=== PATIENT | male | born 1945 | race Caucasian/White ===

== ENCOUNTER 2016-08-15 17:59 | Inpatient (IN) | payer OTHER, MEDICARE ==
[~2016-08-15] VITALS: Ht 180.3 cm; Wt 98.5 kg
--- NOTE | ~2016-08-15 | PR ---
[place], [place] PROGRESS NOTE NAME: BETH DOBBINS [facility] #: [id number] UNIT #: [id number] ROOM: 409 DOCTOR: GERONIMO SMITH MD BIRTHDATE: [birth year] DOS: CARDIOLOGY PROGRESS NOTE SUBJECTIVE: The patient was seen at his bedside today for followup of his paroxysmal atrial fibrillation on 08/19/2016. He is a 70-year-old man who has been fairly inactive at home because of severe degenerative joint disease and pain in his right hip. He presented to the hospital on this occasion with urinary sepsis. Sputum grew out methicillin sensitive Staphylococcus aureus and urine grew out Staphylococcus schleiferi. Blood cultures grew out gram-positive cocci in pairs and clusters. Final identification is not yet available. He is being treated with IV antibiotics including vancomycin and piperacillin. He was very confused and lethargic on admission. This is improving, but he remains somewhat confused. Early on, he did have atrial fibrillation with rapid ventricular response, but this converted spontaneously to sinus rhythm and echocardiogram on 08/16/2016 showed normal left ventricular size with mild concentric left ventricular hypertrophy, global hypokinesis of the left ventricle with ejection fraction 40-45%, moderate right ventricular dilation, moderate left atrial dilation, and thickening of the pericardium, but no significant pericardial effusion. LABORATORY DATA: Laboratory studies today show white count of 22,000, hemoglobin is 8.7, platelet count 252,000. Sodium 139, potassium 4.0, BUN 37, creatinine 1.22. Monitor continues to show sinus rhythm. PHYSICAL EXAMINATION: VITAL SIGNS: His pulse is 73 and regular, blood pressure is 148/74. He is afebrile. He weighs 98.5 kilograms. NECK: Supple. He has no jugular distention. Carotids are full. LUNGS: Respirations are unlabored. CHEST: Clear with decreased breath sounds at the bases. HEART: Has a regular rhythm with an S4 gallop. ABDOMEN: Soft. EXTREMITIES: Showed trace edema bilaterally. He does seem to be stable from a cardiac standpoint. IMPRESSION: 1. Urinary tract infection with sepsis and possible pyelonephritis. 2. Possible left lower lobe pneumonia. 3. Paroxysmal atrial fibrillation with rapid ventricular response in the setting of an acute illness. 4. Decreased left ventricular systolic function. 5. Chronic obstructive pulmonary disease. 6. Severe degenerative joint disease of the hip with intractable pain. PLAN: We will continue supportive care and he will be treated for his infections. Once he has recovered, we will proceed with a pharmacologic stress [place], [place] PROGRESS NOTE NAME: BTEH DOBBINS [facility] #: [id number] UNIT #: [id number] ROOM: 409 DOCTOR: GERONIMO SMITH MD BIRTHDATE: [birth year] test as part of his preoperative assessment prior to hip replacement. We will continue to follow him with his other physicians. We thank the hospitalist physicians for asking our advice regarding his care. GERONIMO SMITH MD CM:PNTRANS [phone] GERONIMO SMITH MD 08/19/169 interface
--- NOTE | ~2016-08-15 | PR ---
[place], [place] PROGRESS NOTE NAME: BETH DOBBINS UNIT #: [id number] ROOM: 409 DOCTOR: BRISA COLLADO MD BIRTHDATE: [birth year] DOS: 08/22/2016 SUBJECTIVE: He has been noted quite comfortable at this time, resting on his bed. Denies symptoms of chest pain. There was no coughing or acute shortness of breath described. Denies any abdominal pain. OBJECTIVE: VITAL SIGNS: Shows normal temperature, respirations 18, heart rate 79, blood pressure 152/70-120/83. Pulse oxygen saturation of the patient on room air was 96% saturation. HEENT: Shows no acute change. NECK: Supple. CARDIOVASCULAR SYSTEM: S1, S2 audible. LUNGS: Clear. ABDOMEN: Soft, nontender. EXTREMITIES: Shows improvement in edema of the lower extremities. LABORATORY DATA: Vancomycin trough level yesterday was noted as 12.7, which is in the normal range. The blood culture from the of this month done in the Emergency Room 7 days ago was described as Staphylococcus capitis isolation. No other labs were done today. IMPRESSION: 1. The patient who has been currently noted with improvement in the respiratory symptoms. in general with resolving acute urinary tract infection and acute pyelonephritis. 2. Isolation Staphylococcus capitis, the patient significance was unknown, possibly contamination or acute infection, not very clear. 3. Resolving acute hypoxic respiratory failure as well. PLAN OF TREATMENT: No changes in plan of management. Continue the patient on current therapy, plan of management, other plan of care. Usual treatment. The patient was planned for possibility of insertion of the PICC line and then transferred to the [facility] facility. In the meantime, other previous treatment to be continued. Usual care. Supportive therapy, plan of management as well. [place], [place] PROGRESS NOTE NAME: BETH DOBBINS UNIT #: [id number] ROOM: 409 DOCTOR: BRISA COLLADO MD BIRTHDATE: [birth year] BRISA SERNA MD CM:PNTRANS 1124 BRISA MCMAHON MD 08/22/16 1124 interface
--- NOTE | ~2016-08-15 | PR ---
[place], [place] PROGRESS NOTE NAME: BETH DOBBINS UNIT #: [id number] ROOM: 405 DOCTOR: BRISA COLLADO MD BIRTHDATE: [birth year] DOS: 08/19/2016 SUBJECTIVE: He has been noted resolution of abdominal pain for this patient. At this time, the coughing has been decreasing. There are no symptoms of chest pain or any abdominal pain. OBJECTIVE: VITAL SIGNS: For the patient, which has been recorded showed the temperature of the patient noted as normal. The respiratory rate 16, heart rate 73, blood pressure 140/84. The pulse oxygen saturation on 2 liters cannula 97% saturation. HEENT: Examination shows no acute change. NECK: Supple. CARDIOVASCULAR: S1, S2 is audible. LUNGS: The patient was noted without any wheezing or crackles. Breaths are noted mild to moderately decreased bilaterally. ABDOMEN: Soft, obese, nontender. EXTREMITIES: Show no edema. LABORATORY DATA: The cultures of the sputum of the patient noted light growth of Staph aureus for this patient. Vancomycin trough level noted as 17. CBC today: WBC count was still noted elevated WBC count 22, hemoglobin 8.7, hematocrit 27.6, platelet count was normal. Blood cultures remain no bacterial growth. Chest x-ray of the patient that were done yesterday for the patient noted without any acute pulmonary infiltration. IMPRESSION: 1. Resolving acute hypoxic respiratory failure. 2. Acute bronchitis. 3. Acute pyelonephritis. 4. Elevation of the WBC count was still noted for this patient with gradual reduction. WBC count decreased from 24,000 yesterday to 22,000 today. PLAN OF TREATMENT: Treatments of Staph aureus for the patient with antibiotics would be continued. The patient is getting intravenous vancomycin, which has also treating the urinary tract infection as well, which has isolated to be staph species ____ Staph aureus. Other previous treatment plan and management to be continued. Monitoring the trough level. Vancomycin adjustment of the doses has been done by the pharmacy staff. The yesterday level noted therapeutic as random level of Vancomycin noted 17. [place], [place] PROGRESS NOTE NAME: BETH DOBBINS UNIT #: [id number] ROOM: 405 DOCTOR: BRISA COLLADO MD BIRTHDATE: [birth year] BRISA SERNA MD CM:PNTRANS [id number] BRISA MCMAHON MD 08/19/16 1427 interface
--- NOTE | ~2016-08-15 | PR ---
[place], [place] PROGRESS NOTE NAME: BETH DOBBINS [facility] #: [id number] UNIT #: [id number] ROOM: 409 DOCTOR: ADITI MAK,SEPTEMBER BIRTHDATE: [birth year] DOS: SUBJECTIVE: The patient is a 70-year-old male who is being followed for sepsis. He had positive blood cultures from his admission on 08/15/2016 with one pair gram-positive cocci in pairs and clusters and gram-negative bacilli. The other set also has gram-positive cocci in pairs and clusters. His urine culture had greater than 100,000 colonies of Staph schleiferi. His MRSA screen was negative. He has MSSA in his sputum. Repeat blood cultures were obtained yesterday and are pending. He has had a CT that demonstrated bilateral chronic versus acute pyelonephritis as well as severe degenerative changes of the right hip with complete loss of joint space. He has significant right leg pain and was actually set up for a total hip replacement on 09/01/2016 that is currently being delayed until his infections are treated. He had a modified barium swallow on 08/18/2016 that was negative. Chest x-ray on 08/18/2016 which showed no active disease. One low-grade temperature overnight at 100.3. REVIEW OF SYSTEMS: No nausea, vomiting or diarrhea. No shortness of breath. Has significant systemic edema, continues with right hip pain. No rashes. Currently has a Morris catheter in place. Denied any urinary symptoms at the time of admission. CURRENT MEDICATIONS: Include vancomycin, Xarelto, Flexeril, Coreg, Protonix, Zocor, Humalog, Percocet, DuoNeb, Neurontin, Restoril and Zofran. LABORATORY DATA: Cultures as reviewed above. WBC is 20.2, platelets 264. BUN 23 and creatinine 0.98. AST 45 and ALT 25. Albumin 1.3. RADIOLOGY: He also had a 2D echocardiogram, which did not demonstrate any valvular vegetation. PHYSICAL EXAMINATION: VITAL SIGNS: Temperature 98.0, pulse 78, respirations 20, BP 173/61. GENERAL: A 70-year-old male, alert and oriented, in no acute distress, but he is a poor historian. HEAD, EYES, EARS, NOSE AND THROAT: Normocephalic. Mucous membranes pink and moist. No thrush. NECK: No cervical lymphadenopathy. LUNGS: Diminished bases, respirations even and unlabored. HEART: Regular rhythm. No murmur appreciated. ABDOMEN: Soft, positive bowel sounds, nontender. EXTREMITIES: +2 edema bilateral upper extremities and bilateral lower extremities. SKIN: Warm, dry, free of rashes. ASSESSMENT: Bacteremia with gram-negative rods and gram-positive cocci with Staphylococcus schleiferi, bacteriuria and pyelonephritis per CT of the abdomen and pelvis, significant leukocytosis. PLAN: At this point, we will continue the IV vancomycin, follow up on cultures. Repeat blood cultures from 08/19/2016 were negative thus far and also given the [place], [place] PROGRESS NOTE NAME: BETH DOBBINS [facility] UNIT #: [id number] ROOM: 409 DOCTOR: ADITI MAK BIRTHDATE: [birth year] gram-negative bacilli that are on the admitting blood cultures, add cefepime. Case discussed with Dr. Anai Figueroa. ANDREW OBDULIO P[place] ANAI FIGUEROA MD CM:MAYANK 08 12 ADITI MAK 08/21/16 7271 interface
--- NOTE | ~2016-08-15 | PR ---
[place], [place] PROGRESS NOTE NAME: BETH DOBBINS UNIT #: [id number] ROOM: 409 DOCTOR: HENRY BARRAGAN,ANAI Robins BIRTHDATE: [birth year] DOS: 08/20/2016 ADDENDUM I agree with above plans as outlined. We will follow the patient up clinically and adjust accordingly. ANAI FIGUEROA MD CM:PNTRANS [id number] ANAI FIGUEROA MD 08/22/16 1049 interface
--- NOTE | ~2016-08-15 | PR ---
[place], [place] PROGRESS NOTE NAME: BETH DOBBINS [facility] #: [id number] UNIT #: [id number] ROOM: 409 DOCTOR: BRISA COLLADO MD BIRTHDATE: [birth year] DOS: 08/21/2016 PULMONARY FOLLOWUP NOTE SUBJECTIVE: The patient was noted with insomnia last night and noted sleeping this morning, he was still noted with generalized weakness and fatigue. The patient has been noted with chronic severe arthritis of the hip for this patient and was noted decreased mobility. Respiratory symptoms of the patient has been improving. There were no symptoms of chest pain, no cough described. OBJECTIVE: VITAL SIGNS: Shows normal temperature, respiratory rate 22, heart rate 81, blood pressure 153/73. Pulse oxygen saturation noted as 93% on nasal cannula. HEENT: Showed no new change. NECK: Supple. CARDIOVASCULAR SYSTEM: S1, S2 audible. LUNGS: The patient was noted without any wheezing or crackles at the present time. ABDOMEN: Soft. EXTREMITIES: Shows mild edema of the lower extremities. LABORATORY DATA: CMP of the patient this morning, glucose 141, BUN and creatinine normal, albumin 1.3. CBC: WBC count 18.5, hemoglobin 8.4, hematocrit 27.0, platelet count was normal. Stool for C. diff toxin was noted as negative. IMPRESSION: The patient who has been currently noted stable from the respiratory standpoint for this patient showing gradual improvement in the acute hypoxic respiratory failure, mild peripheral edema. Acute pyelonephritis. The patient with urinary tract infection. Leukocytosis secondary to acute infection for this patient, urinary tract infection with gradual resolution. PLAN OF TREATMENT: No changes in the plan of management from pulmonary standpoint. Continue the oxygen supplementation, bronchodilators, antibiotics. The patient was planned for PICC line insertion per and then transfer to half-way facility. In the meantime, continue other therapy, plan of management, usual care. Supportive care. [place], [place] PROGRESS NOTE NAME: BETH DOBBINS [facility] #: [id number] UNIT #: [id number] ROOM: 409 DOCTOR: BRISA COLLADO MD BIRTHDATE: [birth year] BRISA SERNA MD CM:PNTRANS 1253 [id number] BRISA MCMAHON MD 08/22/16 0233 interface
--- NOTE | ~2016-08-15 | PR ---
[place], [place] PROGRESS NOTE [id number]IT #: [id number] ROOM: 409 DOCTOR: DAPHNE MCMAOHN MD,BRISA BIRTHDATE: [birth year] DOS: 08/20/2016 PULMONARY PROGRESS NOTE SUBJECTIVE: The patient was seen and examined on 08/20/2016. He has not noticed any acute new respiratory complaints at the present time. The patient has been comfortably resting, getting oxygen supplementation on nasal cannula, the abdominal pain has been resolving. There was no sputum expectoration. OBJECTIVE: VITAL SIGNS: Temperature low grade 100.2 degrees Fahrenheit, normal temperature recorded; respiratory rate 18; heart rate 80; blood pressure 157/63. Pulse oxygen saturation on 2 liters nasal cannula was 98% saturation. HEENT: Shows no new change. NECK: Supple. CARDIOVASCULAR: S1, S2 audible. LUNGS: Noted without any wheezing or crackles at this time. ABDOMEN: Soft, nontender. EXTREMITIES: Show mild edema. LABORATORY DATA: CBC today, WBC count 20.2, hemoglobin 8.3, hematocrit 26.5, platelet count 264,000. BMP, normal BUN and creatinine. Albumin 1.3. IMPRESSION: 1. The patient with resolving acute tracheobronchitis. The patient with Staphylococcus aureus, has urinary tract infection. 2. Mild edema of the upper extremities. 3. Gradual reduction in leukocytosis. PLAN OF TREATMENT: No change in the plan of management at this time. Continue current therapy, plan of care as previously. Usual care. All other supportive plan and management and treatment. BRISA SERNA MD CM:PNTRANS [phone] BRISA MCMAHON MD 08/22/16 0234 interface
--- NOTE | ~2016-08-15 | PROC NOTE ---
[place], [place] PROCEDURE NOTE NAME: BETH DOBBINS [facility] #: [id number] UNIT #: [id number] ROOM: [facility] DOCTOR: GABRIELLE ARNDT BIRTHDATE: [birth year] DOS: 08/18/2016 MODIFIED BARIUM SWALLOW LOCATION: [facility]. ROOM: [facility], bed 9-1. DOCTOR: . RADIOLOGIST: Dr. Briscoe. BACKGROUND INFORMATION: The patient is a 70-year-old male who was seen for modified barium swallow. This test was ordered to rule out aspiration. The patient was admitted to the Emergency Department with increased weakness, fatigue and disorientation. Diagnoses include DEEPTI, inability to ambulate, sepsis, hypertension, centrilobular emphysema, neck surgery, diabetes mellitus, neuropathy. The patient currently receives a regular diet and thin liquid. He denies any swallowing difficulty. The patient does present with elevated white blood count and elevated temperature. For today's assessment, he was alert and able to follow commands and generalized weakness was displayed. Respiratory status was within normal limits. The patient was not requiring oxygen. Oral peripheral examination revealed edentulous status. Lingual, labial, and buccal skills were within normal limits in terms of strength, range of motion, and coordination. The patient was able to volitionally cough and swallow. METHODS AND MATERIALS USED FOR THE EXAM: The patient was positioned in the lateral plane and examination was viewed under fluoroscopy. The patient was presented with a variety of consistencies to assess swallowing skills including applesauce mixed with barium presented in half teaspoon amounts and thin and nectar thick barium taken by cup and barium coated banana taken in bite size piece. ORAL PHASE: The patient achieved adequate labial seal around cup and spoon with no anterior loss. Bolus formation was reduced with thin liquid. Oral transit time was adequate. Tongue to palate contact was within normal limits. Tongue to posterior pharyngeal wall contact was mildly impaired. Velar functioning was within normal limits. PHARYNGEAL PHASE: The pharyngeal swallow was mildly delayed with all consistencies presented. He did exhibit penetration during the swallow with thin liquids due to reduced laryngeal elevation and epiglottic function. Following the swallow, residue was observed in the vallecula. This cleared with re-swallow. The patient was skewed to re-swallow as he demonstrated no awareness of this residue. No aspiration occurred with any consistency. IMPRESSIONS AND RECOMMENDATIONS: Based upon assessment results, this 70-year-old patient exhibited a mild oropharyngeal dysphagia. He exhibited impaired bolus formation with thin liquids, reduced tongue to posterior pharyngeal wall contact, delayed swallow, residue in the pharynx and penetration [place], [place] PROCEDURE NOTE NAME: BETH DOBBINS UNIT #: [id number] ROOM: [facility] DOCTOR: GABRIELLE ARNDT BIRTHDATE: [birth year] with thin liquids. No aspiration occurred with any consistency. Residue was cleared with re-swallow. Recommend soft diet and nectar thick liquids. Recommend use of safe swallow strategies such as small bites and sips and dry swallow. Followup therapy is recommended to ensure safety. Results and recommendations were shared with the patient and his nurse and they verbalized understanding. Thank you very much for this referral. Should you have any questions regarding this patient, please contact the speech pathologist at [phone]. GABRIELLE ARNDT CM:PROCNOTE:PROCEDURE NOTE [id number] GABRIELLE ARNDT
--- NOTE | ~2016-08-15 | PR ---
[place], [place] PROGRESS NOTE NAME: BETH DOBBINS UNIT #: [id number] ROOM: 409 DOCTOR: BRISA COLLADO MD BIRTHDATE: [birth year] DOS: 08/24/2016 PULMONARY PROGRESS NOTE SUBJECTIVE: He has been doing well for this patient at the present time. Denies any symptoms of chest pain or any abdominal pain. He has been comfortably resting on the bed at this time. The patient was noted mostly bed bound because of severe hip problem for the patient and arthritis and the patient's inability to ambulate. He was appropriately responding to vocal commands this morning at the time of the assessment. OBJECTIVE: VITAL SIGNS: For the patient, which has been recorded showed the temperature of the patient noted as normal. The respiratory rate of the patient recorded as 20. Heart rate of 96. Blood pressure 160/75. HEENT: Examination shows no acute change. NECK: Supple. CARDIOVASCULAR SYSTEM: S1, S2 audible. LUNGS: The patient was noted without any wheezing or crackles at the present time. ABDOMEN: Soft and obese. IMPRESSION: 1. The patient who has been currently noted with resolving acute tracheobronchitis for this patient with urinary tract infection and sepsis. 2. Inability to ambulate because of the current severe right hip arthritis and pain. 3. Chronic obesity. PLAN OF TREATMENT: No changes in the pulmonary standpoint for the patient. Discharge planning for the patient was noted in progress. The patient has been considered for discharge to the residential facility for continued antibiotic therapy and others. [place], [place] PROGRESS NOTE NAME: BETH DOBBINS UNIT #: [id number] ROOM: 409 DOCTOR: BRISA COLLADO MD BIRTHDATE: [birth year] BRISA SERNA MD CM:MAYANK 1138 20 BRISA MCMAHON MD 08/24/162021 interface
--- NOTE | ~2016-08-15 | PR ---
[place], [place] PROGRESS NOTE [id number] UNIT #: [id number] ROOM: [facility] DOCTOR: GERONIMO SMITH MD BIRTHDATE: [birth year] DOS: CARDIOLOGY PROGRESS NOTE SUBJECTIVE: The patient was seen at his bedside in the intensive care unit today 08/17/2016, for followup of his paroxysmal atrial fibrillation. He is a 70-year-old man, who is mostly bedridden because of hip pain. At home, he became disoriented with chills. He came to the emergency room and was hospitalized. On the nursing unit, he was found to have a rapid irregular heartbeat and an electrocardiogram showed new onset atrial fibrillation. He was felt to have a sepsis of urinary tract or sores. Since he has been in the intensive care unit, a CAT scan of the abdomen has shown signs that may suggest pyelonephritis. He was treated with diltiazem for his atrial fibrillation and converted spontaneously to sinus rhythm with frequent PACs. Diltiazem was stopped and he seems to be maintaining sinus rhythm without it. He denies any chest pain today and is undergoing management of his sepsis. PHYSICAL EXAMINATION: VITAL SIGNS: Today, his pulse is 79 with frequent premature beats. Blood pressure is 139/89. His temperature is 98.5. He weighs 98.5 kg and has a body mass index of 30.3. NECK: Supple. He has no jugular distention. Carotids are full. LUNGS: Respirations are unlabored. His chest has decreased breath sounds at the bases. HEART: Has a regular rhythm with frequent premature beats. He has a fourth heart sound, but no third heart sound. ABDOMEN: Soft and normally active. EXTREMITIES: Showed no edema. An echocardiogram done yesterday showed normal left ventricular size with mild concentric left ventricular hypertrophy. There was global hypokinesis of the left ventricle with an ejection fraction between 40% and 45%. The right ventricle is moderately dilated with decreased right ventricular systolic function. There was biatrial enlargement. PLAN: For now, we will continue to manage him with beta blockers as his infections are being treated. Eventually, he probably should undergo a pharmacologic stress test prior to any elective hip surgery. We thank the hospitalist group for asking our advice regarding his care. [place], [place] PROGRESS NOTE [facility] [id number] UNIT #: [id number] ROOM: [facility] DOCTOR: GERONIMO SMITH MD BIRTHDATE: [birth year] GERONIMO SMITH MD CM:PNTRANS 1112 [id number] GERONIMO SMITH MD 08/17/16 1233 interface
--- NOTE | ~2016-08-15 | CON ---
[place], [place] REPORT OF CONSULTATION [id number] UNIT #: [id number] [facility] DOCTOR: BRISA COLLADO MD BIRTHDATE: [birth year] DOS: 08/17/2016 PULMONARY CONSULTATION EVALUATION AND MANAGEMENT REASON FOR CONSULTATION: The consultation was done for this patient for assessment of the ongoing acute respiratory problems. HISTORY OF PRESENT ILLNESS: This is a 70-year-old white male who has been admitted to the hospital under care of the hospitalist service on 08/15/2016. The patient has been noted mostly in bedridden status because of severe pain which is described in the hip. The patient has been scheduled for the hip replacement because of severe degenerative arthritis. He has been seen in the Emergency Room recently and was advised hospitalization for the rehabilitation, but the patient refused to be admitted. He has been brought to the hospital. The patient has been noted with generalized weakness and fatigue and also noted with significant disorientation. He has been noted with severe pain which has been controlled with the pain medication including Percocet and morphine. The patient has been admitted to the hospital, also noted symptoms of dizziness and others. He has been diagnosed with current acute pyelonephritis as well with abdominal pain, which has been described. He denies symptoms of coughing or any sputum expectoration. Denies symptoms of chest pain or hemoptysis. REVIEW OF SYSTEMS: CONSTITUTIONAL: Fatigue and tiredness noted for this patient with chills at home. EYES: Denies any burning, redness, or tenderness. EARS, NOSE, THROAT: No sore throat, hoarseness, otalgia, or postnasal drainage. CARDIOVASCULAR: Denies any anginal pain, edema or pain of the lower extremities. Recently noted with atrial fibrillation, rapid ventricular response, which has been treated. GASTROINTESTINAL: The patient was noted without symptoms of nausea, vomiting, noted with pain in the abdomen. There were no symptoms of hematemesis, melena, or hematochezia. SKIN: No lesions or rashes. MUSCULOSKELETAL: Severe degenerative arthritis involving the right hip. CENTRAL NERVOUS SYSTEM: Denies dizziness, headache or diplopia. Remaining systems were reviewed with the patient, they were noted all negative. PAST MEDICAL HISTORY: Reported: 1. Centrilobular emphysema. 2. Type 2 diabetes mellitus. 3. Diabetic nephropathy. 4. Hyperlipidemia. 5. Essential hypertension. 6. Hypertriglyceridemia. 7. Severe osteoarthritis, degenerative arthritis of the hip. 8. Obesity. PAST SURGICAL HISTORY: [place], [place] REPORT OF CONSULTATION NAME: BETH DOBBINS UNIT #: [id number] [facility]: [facility] DOCTOR: BRISA COLLADO MD BIRTHDATE: [birth year] 1. Surgery of the foot. 2. Neck surgery. 3. Tonsillectomy. SOCIAL HISTORY: The patient is , was living at home prior to the hospitalization. He has not been noted with history of alcohol or illicit drug use. Tobacco use noted since teenager up to 2 packs of cigarettes per day for 44 years. There was no history of occupation related pulmonary exposure described. FAMILY HISTORY: Reported as father at age 9393 years old from old age. The mother at the age of 8787 years old from complication of pancreatic cancer and also noted history of coronary artery disease. HOME MEDICATIONS: Listed as use of Flexeril, diclofenac, gabapentin, Percocet, glyburide, lisinopril, pravastatin, and tramadol. DRUG ALLERGIES: Noted for no known drug allergies. PHYSICAL EXAMINATION: GENERAL: This is a 70-year-old white male who has been currently admitted to the hospital and noted to be awake and alert without any acute distress at the present time. Height of the patient recorded at 5 feet 11 inches, weight of 217 pounds, BMI 30.3. VITAL SIGNS: Show a temperature of 100.6 degree Fahrenheit, rectal temperature, normal temperature, respiratory rate of the patient recorded between 13-22. Heart rate of 136 with atrial fibrillation, currently noted as 79 beats per minute. Blood pressure 137/61-128/64. Intake 5700 mL, output 2400 mL. Pulse oxygen saturation was recorded on room air 88% saturation, current 2 liters 94% saturation. HEENT: Head was atraumatic. Eyes nonicterus. NECK: Supple. CARDIOVASCULAR: S1, S2 is audible without any added sounds. LUNGS: The patient was noted with moderate general reduction in the breath sounds noted in the lungs bilaterally. ABDOMEN: Bowel sounds present. EXTREMITIES: The patient does not show any edema, clubbing, cyanosis. Mild obesity was present. SKIN: Visible skin does not show any lesions or rashes. MUSCULOSKELETAL: No gross deformities. CENTRAL NERVOUS SYSTEM: Cannot be clearly examined because of limitations with current hip pain for this patient, but was not reported with any focal deficits or weakness. LABORATORY DATA: CBC of the patient on 08/15/2016, WBC count 20.2, hemoglobin 9.9, hematocrit 30.8, platelet count was normal, 91% segmented neutrophils on 08/15/2016. X-ray of the right hip for this patient was also performed, shows degenerative changes of the right hip as noted previously. Lactic acid 2.5 on admission, followup lactic acid 2.0 on 08/16/2016. The CMP of the patient on 08/15/2016, glucose 189, BUN 65, creatinine 1.71. Albumin 1.6, total protein of [place], [place] REPORT OF CONSULTATION NAME: BETH DOBBINS UNIT #: [id number] [facility] B[facility] [birth year] 1.6 as well. Urine drug screen of the patient was noted positive for opiates. CMP of the patient on 08/16/2016, BUN 52, creatinine 1.52 recorded at that time. PT/PTT of patient that was noted yesterday as normal. CBC for patient that was done this morning shows a WBC count 23.7, hemoglobin 9.2, hematocrit 28.3, platelet count ,000, 93% segmented neutrophils. CMP this morning, BUN 56, creatinine 1.61, glucose 111. Blood culture from 08/15/2016, 2 sets of the patient, preliminary showing no bacterial growth, final culture results were pending. Culture of the urine of the patient was showing heavy growth of gram-positive cocci. Ultrasound of the abdomen of the patient was also completed this morning and reported by the radiologist as no hepatic ascites, splenomegaly without any other abnormalities noted including of the kidneys. Culture of the sputum of the patient was sent, shows many white blood cells, moderate epithelial cells, few gram-positive cocci in pairs and clusters with rare budding yeast. PTT for this patient noted 49.2 which is in therapeutic range. The radiology data review pertinent to the chest for this patient. Chest x-ray of the patient that was 1 view on 08/15/2016 shows no acute pulmonary infiltration. Lower portion CT of the thorax, which was also noted for this patient with CT scan of the abdomen and pelvis was described as no acute pulmonary infiltration except basilar areas of atelectasis of the patient was noted in the lower lungs, more likely than pulmonary infiltration as pneumonia. Extensive parenchymal inflammatory changes of the patient was described, may be chronic; however, the acute pyelonephritis of the patient was also described in the Gerota's fascia for this patient in the kidneys area. There was no hydronephrosis or calculus described. There was no lymphadenopathy described. IMPRESSION: 1. The patient who has been currently admitted to the hospital with symptoms of abdominal pain, was described with possibility of acute pyelonephritis with gram-positive organisms, which has been treated. 2. Acute hypoxic respiratory failure secondary to that. 3. Basilar area of atelectasis, more likely than acute pneumonia secondary to current abdominal pathology, passive atelectasis of the patient, which is noted small subsegmental. 4. History of chronic obstructive pulmonary disease for the patient was also known previously as well. 5. History of hypercholesterolemia as well. 6. Acute atrial fibrillation, new onset with rapid ventricular response. PLAN OF TREATMENT: Continue to adequately treat the infection of this patient with monitoring all the culture results. Bronchodilators should be sufficient for the patient to treat the current respiratory secretion. Monitor the results of the sputum culture. Abstinence from tobacco use was advised to control the pain. BiPAP for this patient could be used in case of worsening hypoxia; at this time, it is not needed since the patient has been noted comfortable. Continue to treat atrial fibrillation, rapid ventricular response with current medical management, which has been ordered by the Cardiology services including anticoagulation with therapeutic heparin which will also result in DVT prophylaxis with additional benefit. Supportive therapy, plan of management, and monitoring of the leukocytosis as well. [place], [place] REPORT OF CONSULTATION NAME: BETH DOBBINS UNIT #: [id number] [facility]: [facility] DOCTOR: BRISA COLLADO MD BIRTHDATE: [birth year] Thanks for allowing me to participate in the care of this patient. BRISA SERNA MD CM:CONSTR:REPORT OF CONSULTATION 1400 08/18/16 0015 interface
--- NOTE | ~2016-08-15 | PR ---
[place], [place] PROGRESS NOTE NAME: BETH DOBBINS UNIT #: [id number] ROOM: [facility] DOCTOR: DAPHNE MCMAHON MD,BRISA BIRTHDATE: [birth year] DOS: 08/18/2016 SUBJECTIVE: He had been noted quite comfortable at this time, resting on the bed. Denies any abdominal pain. Denies symptoms of chest pain, nausea, vomiting, and diarrhea. OBJECTIVE: VITAL SIGNS: The patient shows a temperature noted 99.4 degrees Fahrenheit to normal temperature, respiratory rate 18, heart rate of 82, blood pressure 142/67. Intake is 6154 mL, output 2900 mL, and positive fluid balance of 3 liters. Pulse oxygen saturation on 2 liters nasal cannula 96% saturation recorded. HEENT: Shows head was atraumatic. Eyes nonicterus. CARDIOVASCULAR SYSTEM: S1, S2 audible. LUNGS: The patient was noted without any wheezing or crackles on today's exam. ABDOMEN: Soft, obese, bowel sounds are present. LABORATORY DATA: The patient was noted with growth of gram-positive cocci. The patient light growth from sputum culture with pending final results. The culture of the sputum for the patient from the showed light growth of gram-positive cocci with pending final culture results. The CMP of the patient this morning, BUN 37, creatinine was normal. CO2 of 20. Albumin 1.3. AST 78, alkaline phosphatase is 269. CBC for the patient this morning, WBC count 24.3, hemoglobin 9, hematocrit 28.1, platelet count was normal. IMPRESSION: 1. Acute hypoxic respiratory failure. The patient was noted with some pulmonary venous congestion was noted previously with resolving. 2. Acute pyelonephritis for this patient that has been improving progressively. 3. Chronic obesity. 4. Chronic obstructive pulmonary disease as well. 5. Atrial fibrillation with rapid ventricular response. PLAN OF TREATMENT: 1. The patient has been currently getting Xarelto for this patient for the long-term management of anticoagulation. 2. Atrial fibrillation has been resolving. Continue antibiotics based on the culture results of the urine. Discontinue the other antibiotics, which would not be needed. There were no signs of acute anemia. Supportive plan of management and therapies. 3. Acute bronchitis. [place], [place] PROGRESS NOTE NAME: BETH DOBBINS UNIT #: [id number] ROOM: [facility] DOCTOR: DAPHNE MCMAHON MD,BRISA BIRTHDATE: [birth year] BRISA SERNA MD CM:PNSAMANTHA [id number] BRISA MCMAHON MD 08/18/16 1253 interface
--- NOTE | ~2016-08-15 | PR ---
[place], [place] PROGRESS NOTE NAME: BETH DOBBINS UNIT #: [id number] ROOM: [facility] DOCTOR: GERONIMO SMITH MD BIRTHDATE: [birth year] DOS: 08/18/2016 SUBJECTIVE: The patient was seen at his bedside in the Intensive Care Unit with family in attendance. He is feeling better and much more awake and alert. He is much less confused. He still has considerable pain in his right hip. He denies any chest pain or palpitations. The monitor shows that he is remaining in sinus rhythm with PACs. PHYSICAL EXAMINATION: VITAL SIGNS: Today, his pulse is 79 and regular, blood pressure is 143/77. He is afebrile. He weighs 98.5 kilograms with a body mass index of 30.3. NECK: Supple. He has no jugular distention. Carotids are full. LUNGS: Respirations are unlabored. He has crackles at the bases. HEART: Has a regular rhythm with an S4 gallop. ABDOMEN: Benign. EXTREMITIES: Showed no edema. Echocardiogram on 08/16/2016, showed normal left ventricular size with mild concentric left ventricular hypertrophy. There was global hypokinesis of the left ventricle with an ejection fraction between 40% and 45%. The right ventricle is moderately dilated with decreased right ventricular systolic function, biatrial enlargement was present. LABORATORY DATA: Hemoglobin is 9.0, white count is still severely elevated at 24,200, platelet count is 240,000. Sodium is 139, potassium 4.0, BUN 37, creatinine 1.22 (improving). IMPRESSION: 1. Urinary tract infection with sepsis and possible pyelonephritis. 2. Possible left lower lobe pneumonia. 3. Atrial fibrillation with rapid ventricular response in the setting of acute illness. 4. Decreased left ventricular systolic function. 5. Chronic obstructive pulmonary disease. 6. Severe degenerative joint disease of the hip with intractable pain. PLAN: For now, we will continue supportive care and he will be treated for his infections. Once he has recovered from that, we will proceed with a pharmacologic stress test as part of his preoperative assessment prior to hip replacement. The ultimate goal is to get him healthy enough to get his hip replacement done. We thank the hospitalist physicians for asking our advice regarding his care. [place], [place] PROGRESS NOTE NAME: BETH DOBBINS UNIT #: [id number] ROOM: [facility] DOCTOR: GERONIMO SMITH MD BIRTHDATE: [birth year] GERONIMO SMITH MD CM:PNTRANS [id number] GERONIMO SMITH MD 08/18/16 1356 interface
--- NOTE | ~2016-08-15 | CON ---
[place], [place] REPORT OF CONSULTATION NAME: BETH DOBBINS [facility] #: [id number] UNIT #: [id number] ROOM: [facility] DOCTOR: GERONIMO SMITH MD BIRTHDATE: [birth year] DOS: 08/16/2016 The patient was seen at his bedside in the Intensive Care Unit on 08/16/2016, and his situation was discussed with his . REASON FOR CONSULTATION: New onset atrial fibrillation. HISTORY OF PRESENT ILLNESS: The patient is a 70-year-old man who has severe degenerative joint disease of his right hip. He has been in considerable pain from this lately and has been mostly bedridden. He is being followed by Orthopedic Surgery and plans are being made to replace his hip once he is medically stabilized. At home, he became disoriented and had intermittent chills. He came into the Emergency Room and was hospitalized. On the nursing unit, he was noted to become diaphoretic and was found to have a heart rate of 152. Electrocardiography showed new onset atrial fibrillation with rapid ventricular response. In addition, he did show signs of sepsis, most likely from urinary tract source. He was therefore moved to the Intensive Care Unit. Cardiology was consulted. PAST MEDICAL HISTORY: Includes: 1. Type 2 diabetes mellitus. 2. Essential hypertension. 3. Hyperlipidemia. 4. prison and ongoing cigarette abuse of 2 packs a day for 44 years. 5. History of foot surgery, neck surgery and tonsillectomy. MEDICATIONS: Prior to admission, cyclobenzaprine 10 mg t.i.d., diclofenac 50 mg b.i.d., gabapentin 800 mg t.i.d., glyburide 2.5 mg b.i.d., lisinopril 5 mg daily, oxycodone with acetaminophen b.i.d., pravastatin 20 mg at bedtime and tramadol 50 mg b.i.d. ALLERGIES: The patient has no known drug allergies. FAMILY HISTORY: The patient's mother at age 93 from old age. His father at age 87 from pancreatic cancer. SOCIAL HISTORY: The patient is . He does not consume significant amounts of alcohol and does not take illegal drugs. He does smoke 2 packs a day. PHYSICAL EXAMINATION: GENERAL: The patient is an elderly white male who looks older than his stated age. He is somewhat diaphoretic and lethargic. VITAL SIGNS: Pulse is 140 and irregularly irregular, blood pressure is 131/82. His temperature is 98.7. He weighs 98.5 kg and has a body mass index of 30.3. HEENT: Normocephalic and atraumatic. Extraocular muscles are intact. Sclerae are clear. Pupils are round and reactive to light. The oral mucosa is moist. Tongue is midline. NECK: Supple. He has no jugular distention. He does have hepatojugular reflux. Carotids are full. I heard no bruits. He had no neck or [place], [place] REPORT OF CONSULTATION NAME: BETH DOBBINS UNIT #: [id number] ROOM: [facility] DOCTOR: GERONIMO SMITH MD BIRTHDATE: [birth year] supraclavicular masses and no thyromegaly. Respirations were slightly tachypneic. LUNGS: Do show few crackles at the bases bilaterally. He has no presacral edema or chest wall tenderness. CARDIOVASCULAR: His heart has a rapid irregular rhythm without murmurs or gallops. PMI is not displaced. He has no precordial heave, lift or thrill. ABDOMEN: Soft and normally active without masses, organomegaly or bruits. EXTREMITIES: Showed no edema. Peripheral pulses are markedly diminished in the feet bilaterally. LABORATORY DATA: electrocardiogram shows atrial fibrillation with a rapid ventricular response. No acute ST or T-wave changes are seen. White count is 28,100, hemoglobin 9.7, platelet count 214,000. INR is 1.2. Sodium 137, potassium 4.2, chloride 104, CO2 of 19, BUN 52, creatinine 1.54. Lactic acid is 2.1, magnesium 2.4. Troponin is less than 0.015. Total cholesterol is 103, LDL 37, HDL 9, triglycerides 285. TSH is 0.645 (within normal limits). IMPRESSION: 1. Sepsis, most likely from urinary tract origin. 2. Newly diagnosed atrial fibrillation with rapid ventricular response. 3. Systemic inflammatory reaction syndrome (SIRS). 4. History of hypertension. 5. History of diabetes. 6. History of hyperlipidemia. 7. Probable significant malnutrition. 8. Degenerative joint disease of the right hip. PLAN: We will control his heart rate with diltiazem intravenously and place him on heparin as a drip for stroke prophylaxis. He is being evaluated for his sepsis. We will get an echocardiogram in addition to the workup already arranged by his primary team. Further recommendations will depend upon the echo results and his response to therapy. His primary problem at this point appears to be infectious, however. [facility] and I thank the hospitalist physicians for asking our advice regarding the patient's care. [place], [place] REPORT OF CONSULTATION NAME: SHILPIBETH Aisha UNIT #: [id number] ROOM: [facility] DOCTOR: GERONIMO SMITH MD BIRTHDATE: [birth year] GERONIMO SMITH MD CM:CONSTR:REPORT OF CONSULTATION 1006 08/16/16 1143 interface
--- NOTE | ~2016-08-15 | PR ---
[place], [place] PROGRESS NOTE NAME: BETH DOBBINS UNIT #: [id number] ROOM: 409 DOCTOR: BRISA COLLADO MD BIRTHDATE: [birth year] DOS: 08/23/2016 SUBJECTIVE: He was seen and examined on 08/23/2016. He was noted fully awake and alert this morning. The patient noted earlier unresponsiveness for the patient. Had a CT scan of the brain done for the patient, which was noted essentially unremarkable. The ammonia level was also obtained, which was noted normal. The patient does follow vocal commands. The patient noted fully awake and alert. Denies any ongoing acute complaints. OBJECTIVE: VITAL SIGNS: Showed normal temperature, respiratory rate 20, heart rate 93, blood pressure 148/68-161/65. Pulse oxygen saturation on room air 93% saturation. HEENT: Examination shows moderate obesity. NECK: Supple. CARDIOVASCULAR: S1, S2 audible. LUNGS: The patient was noted without any wheeze or crackles at the present time. ABDOMEN: Noted soft, nontender. Bowel sounds are present. LABORATORY DATA: CT scan of the head for this patient was noted unremarkable this morning done at 8:22. CBC of the patient that was done this morning showed WBC count 14.1, hemoglobin 7.9, hematocrit 24.9 with platelet count was normal. Ammonia level noted as normal. IMPRESSION: 1. The patient with PICC line insertion for the patient that was done this morning, unresponsiveness at this time, etiology unclear, noted complete resolution of unresponsiveness at the time of the assessment later on this morning. 2. The patient with progressive reduction and resolution of the leukocytosis. 3. Acute pyelonephritis and acute hypoxic respiratory failure. PLAN OF TREATMENT: No changes from the pulmonary standpoint at this time. Continue current plan of management as in progress. Other supportive therapy, plan of management as well as previously. No other change in treatment at this time will be recommended. [place], [place] PROGRESS NOTE NAME: BETH DOBBINS UNIT #: [id number] ROOM: 409 DOCTOR: BRISA COLLADO MD BIRTHDATE: [birth year] BRISA SERNA MD CM:PNTRANS [id number] BRISA MCMAHON MD 08/23/16 1631 interface
[~2016-08-15 17:59] MED LIST: BAYER ASPIRIN C81 MG PO; CENTRUM SILVER1 EAC2 PO; COSAMIN ASU CA1 EACH PO; CRESTOR20 M1 PO; DICLOFENAC SOD50 MG PO; Diabeta,Micron2.5 MG PO; FLEXERIL10 MG PO; LUTEIN-ZEAXANT1 EACH PO; MAGNESIUM500 MG PO; MODURETIC 5/501 TAB PO; NEURONTIN800 MG PO; OMEGA 3 500 SO1 EACH PO; PERCOCET 325 MG1 TA2 PO; PRINIVIL5 M1 PO; PRINIVIL5 MG PO; TRAMADOL HCL50 MG PO; VITAMIN D310000 UNI1 PO; ZOCOR40 MG PO
[2016-08-15 18:03] VITALS: BP 116/45
[2016-08-15] MEDS ORDERED: ACETAMINOPHEN-O1 TAB PO (18:04)
[2016-08-15] MEDS ORDERED: LISINOPRIL5 MG PO (18:05)
[2016-08-15] MEDS ORDERED: Diabeta,Micron2.5 MG PO (18:05)
[2016-08-15] MEDS ORDERED: TRAMADOL HCL50 MG PO (18:05)
[2016-08-15] MEDS ORDERED: DICLOFENAC SOD50 MG PO (18:06)
[2016-08-15 18:51] LABS: HEMATOCRIT 30.8 % (42.0-52.0); HEMOGLOBIN 9.9 g/dl (14.0-18.0); MEAN CELL VOLUME 84.4 fl (80.0-94.0); MEAN CORPUSCULAR HGB 27.1 pg (27.0-31.0); MEAN CORPUSCULAR HGB CONC 32.1 g/dl (33.0-37.0); MEAN PLATELET VOLUME 10.9 fl (9.6-12.3); NUCLEATED RED BLOOD CELL 0.1 10*3/uL (0.0-0.0); NUCLEATED RED BLOOD CELL 0.3 % (0.0-0.0); PLATELET COUNT AUTOMATED 185 10*3/uL (130-400); RED BLOOD COUNT 3.65 10*6/uL (4.50-5.90); RED CELL DISTRI WIDTH 16.5 % (0-14.5); WHITE BLOOD COUNT 20.2 10*3/uL (4.8-10.8)
[2016-08-15 19:06] LABS: ALBUMIN 1.6 gm/dl (3.1-4.5); BILIRUBIN, TOTAL 1.6 mg/dl (0.2-1.0); POTASSIUM 4.5 mmol/L (3.5-5.1); TOTAL PROTEIN 6.3 gm/dL (6.4-8.2)
[2016-08-15 19:14] LABS: EOSINOPHIL # 0.6 10*3/uL (0-0.4); EOSINOPHILS 3 % (1-4); LYMPHOCYTE # 0.2 10*3/uL (1.3-4.4); NEUTROPHIL # 18.4 10*3/uL (2.3-7.9); NEUTROPHILS 91 % (47-73); TOTAL CELLS COUNTED 100 #CELLS
[2016-08-15 19:15] LABS: POLYCHROMASIA SLIGHT
[2016-08-15 19:16] LABS: PLATELET SUFFICIENCY NORMAL (NORMAL)
[2016-08-15 20:11] VITALS: BP 96/40
[2016-08-15 20:50] VITALS: BP 101/58
[2016-08-15 21:40] VITALS: BP 96/42
[2016-08-15 22:00] LABS: LA>2 REFLEX 2 HR DRAW NOW
[2016-08-15 22:25] LABS: LA>2 RFLX FOLLOW UP AT 2 HRS 2.1 mmol/L (0.4-2.0)
[2016-08-15] MEDS ORDERED: CYCLOBENZAPRINE10 MG PO (22:33)
[2016-08-15] MEDS ORDERED: NEURONTIN800 MG PO (22:33)
[2016-08-15] MEDS ORDERED: BAYER ASPIRIN C81 MG PO (22:34)
[2016-08-15] MEDS ORDERED: COSAMIN ASU CA1 EACH PO (22:34)
[2016-08-15] MEDS ORDERED: CENTRUM SILVER1 EACH PO (22:36)
[2016-08-15] MEDS ORDERED: PRAVASTATIN SOD20 MG PO (22:39)
[2016-08-15 23:01] LABS: BILIRUBIN NEGATIVE (NEGATIVE); BLOOD 3+ (NEGATIVE); CLARITY CLOUDY (CLEAR); COLOR YELLOW (YELLOW); GLUCOSE NEGATIVE (NEGATIVE); KETONE NEGATIVE (NEGATIVE); LEUKO ESTERASE 3+ (NEGATIVE); NITRITE NEGATIVE (NEGATIVE); PROTEIN 1+ (NEGATIVE)
[2016-08-15 23:07] LABS: BACTERIA 3+; URINE REFLEX COMMENT YES (NO); WBC TNTC wbc/hpf (0-5)
[2016-08-16] VITALS (9 sets, daily range): BP systolic 110–137; BP diastolic 44–82
[2016-08-16 00:17] LABS: LA>2 REFLEX 4 HR DRAW NOW
[2016-08-16 00:40] LABS: CKMB 3.7 ng/ml (0.5-3.6); CPK 394 U/L (39-308); TROPONIN I < 0.015 ng/ml (<0.045)
[2016-08-16 02:58] LABS: URINE AMPHETAMINES < 1000 (1000ng/ml); URINE BARBITURATES < 200 (200ng/ml); URINE COCAINE < 300 (300ng/ml)
[2016-08-16 05:57] LABS: ALBUMIN 1.6 gm/dl (3.1-4.5); CKMB 2.8 ng/ml (0.5-3.6); CPK 401 U/L (39-308); FREE T4 1.34 ng/dl (0.76-1.46); HEMOGLOBIN A1c 7.5 % (4.8-5.6); MAGNESIUM 2.4 mg/dL (1.5-2.1); PHOSPHOROUS 3.7 mg/dL (2.5-4.9); POTASSIUM 4.2 mmol/L (3.5-5.1); TOTAL PROTEIN 6.1 gm/dL (6.4-8.2)
[2016-08-16 05:59] LABS: TROPONIN I < 0.015 ng/ml (<0.045)
[2016-08-16 06:01] LABS: THYROID STIM HORMONE (HS) 0.645 uIU/ml (0.358-4.75)
[2016-08-16 06:21] LABS: HEMATOCRIT 29.8 % (42.0-52.0); HEMOGLOBIN 9.7 g/dl (14.0-18.0); MEAN CELL VOLUME 83.5 fl (80.0-94.0); MEAN CORPUSCULAR HGB 27.2 pg (27.0-31.0); MEAN CORPUSCULAR HGB CONC 32.6 g/dl (33.0-37.0); MEAN PLATELET VOLUME 11.2 fl (9.6-12.3); NUCLEATED RED BLOOD CELL 0.1 10*3/uL (0.0-0.0); NUCLEATED RED BLOOD CELL 0.2 % (0.0-0.0); PLATELET COUNT AUTOMATED 214 10*3/uL (130-400); RED BLOOD COUNT 3.57 10*6/uL (4.50-5.90); RED CELL DISTRI WIDTH 16.4 % (0-14.5); WHITE BLOOD COUNT 28.1 10*3/uL (4.8-10.8)
[2016-08-16 06:33] LABS: INTERNATIONAL NORM RATIO 1.2 (2.0-3.5); PROTHROMBIN TIME 13.3 SECONDS (9.0-12.4)
[2016-08-16 06:53] LABS: FOLIC ACID 9.84 ng/mL (>5.38); VITAMIN D, 25-HYDROXY 62.9 ng/mL (30-100)
[2016-08-16 07:05] LABS: LYMPHOCYTE # 0.6 10*3/uL (1.3-4.4); MONOCYTE # 1.1 10*3/uL (0.1-1.0); NEUTROPHIL # 26.4 10*3/uL (2.3-7.9); NEUTROPHILS 94 % (47-73); TOTAL CELLS COUNTED 100 #CELLS
[2016-08-16 07:06] LABS: BURR CELLS FEW; PLATELET SUFFICIENCY NORMAL (NORMAL); POLYCHROMASIA SLIGHT; TOXIC GRANULATION SLIGHT; VACUOLATION OF NEUTROPHILS MODERATE
[2016-08-17] VITALS: BP 131/59
[2016-08-17 04:00] VITALS: BP 128/64
[2016-08-17 06:03] LABS: HEMATOCRIT 28.3 % (42.0-52.0); HEMOGLOBIN 9.2 g/dl (14.0-18.0); MEAN CORPUSCULAR HGB 27.3 pg (27.0-31.0); MEAN CORPUSCULAR HGB CONC 32.5 g/dl (33.0-37.0); MEAN PLATELET VOLUME 11.4 fl (9.6-12.3); NUCLEATED RED BLOOD CELL 0.1 % (0.0-0.0); PLATELET COUNT AUTOMATED 235 10*3/uL (130-400); RED BLOOD COUNT 3.37 10*6/uL (4.50-5.90); RED CELL DISTRI WIDTH 16.7 % (0-14.5); WHITE BLOOD COUNT 23.7 10*3/uL (4.8-10.8)
[2016-08-17 06:04] LABS: ALBUMIN 1.4 gm/dl (3.1-4.5); BILIRUBIN, TOTAL 1.6 mg/dl (0.2-1.0); MAGNESIUM 2.7 mg/dL (1.5-2.1); PHOSPHOROUS 5.1 mg/dL (2.5-4.9); POTASSIUM 3.8 mmol/L (3.5-5.1)
[2016-08-17 06:29] LABS: EOSINOPHIL # 0.2 10*3/uL (0-0.4); EOSINOPHILS 1 % (1-4); LYMPHOCYTE # 1.2 10*3/uL (1.3-4.4); MYELOCYTES 1 % (0-0); NEUTROPHILS 93 % (47-73); TOTAL CELLS COUNTED 100 #CELLS
[2016-08-17 06:31] LABS: PLATELET SUFFICIENCY NORMAL (NORMAL); TOXIC GRANULATION SLIGHT
[2016-08-17 08:00] VITALS: BP 139/89
[2016-08-17 12:00] VITALS: BP 119/61
[2016-08-17 16:00] VITALS: BP 121/64
[2016-08-17 20:00] VITALS: BP 157/87
[2016-08-18] VITALS: BP 139/50
[2016-08-18 04:00] VITALS: BP 143/67
[2016-08-18 07:04] LABS: HEMATOCRIT 28.1 % (42.0-52.0); MEAN CELL VOLUME 83.9 fl (80.0-94.0); MEAN CORPUSCULAR HGB 26.9 pg (27.0-31.0); MEAN PLATELET VOLUME 10.2 fl (9.6-12.3); PLATELET COUNT AUTOMATED 240 10*3/uL (130-400); RED BLOOD COUNT 3.35 10*6/uL (4.50-5.90); WHITE BLOOD COUNT 24.2 10*3/uL (4.8-10.8)
[2016-08-18 07:40] LABS: ALBUMIN 1.3 gm/dl (3.1-4.5); ALKALINE PHOSPHATASE 269 U/L (45-117); BILIRUBIN, TOTAL 1.5 mg/dl (0.2-1.0); CARBON DIOXIDE 20 mmol/L (21-32); CHLORIDE 107 mmol/L (98-107); EST GLOM FILT AFRICAN AMERICAN > 60 ml/min; GLUCOSE 66 mg/dL (65-99); SGOT/AST 78 IU/L (3-35); SGPT/ALT 41 U/L (12-78); SODIUM 139 mmol/L (136-145)
[2016-08-18 07:42] LABS: BUN 37 mg/dl (7-24)
[2016-08-18 08:00] VITALS: BP 143/77
[2016-08-18 08:13] LABS: HYPOCHROMIA SLIGHT; LYMPHOCYTE # 0.7 10*3/uL (1.3-4.4); MONOCYTE # 0.2 10*3/uL (0.1-1.0); NEUTROPHIL # 23.2 10*3/uL (2.3-7.9); NEUTROPHILS 96 % (47-73); PLATELET SUFFICIENCY NORMAL (NORMAL); POLYCHROMASIA SLIGHT; TOTAL CELLS COUNTED 100 #CELLS
[2016-08-18 12:00] VITALS: BP 132/64
[2016-08-18 16:00] VITALS: BP 130/65
[2016-08-18 20:00] VITALS: BP 138/65
[2016-08-19] VITALS: BP 146/72
[2016-08-19 07:17] LABS: HEMATOCRIT 27.6 % (42.0-52.0); HEMOGLOBIN 8.7 g/dl (14.0-18.0); MEAN CELL VOLUME 84.9 fl (80.0-94.0); MEAN CORPUSCULAR HGB 26.8 pg (27.0-31.0); MEAN CORPUSCULAR HGB CONC 31.5 g/dl (33.0-37.0); MEAN PLATELET VOLUME 10.1 fl (9.6-12.3); PLATELET COUNT AUTOMATED 252 10*3/uL (130-400); RED BLOOD COUNT 3.25 10*6/uL (4.50-5.90); RED CELL DISTRI WIDTH 16.8 % (0-14.5)
[2016-08-19 07:37] LABS: LYMPHOCYTE # 1.3 10*3/uL (1.3-4.4); MONOCYTE # 0.2 10*3/uL (0.1-1.0); MYELOCYTES 1 % (0-0); NEUTROPHIL # 20.2 10*3/uL (2.3-7.9); NEUTROPHILS 92 % (47-73); PLATELET SUFFICIENCY NORMAL (NORMAL); POLYCHROMASIA SLIGHT; TOTAL CELLS COUNTED 100 #CELLS; TOXIC GRANULATION SLIGHT
[2016-08-19 08:00] VITALS: BP 140/64
[2016-08-19 12:00] VITALS: BP 148/74
[2016-08-19 16:00] VITALS: BP 153/60
[2016-08-19 20:00] VITALS: BP 155/64
[2016-08-20] VITALS: BP 138/52
[2016-08-20 07:05] LABS: HEMATOCRIT 26.5 % (42.0-52.0); HEMOGLOBIN 8.3 g/dl (14.0-18.0); MEAN CELL VOLUME 84.7 fl (80.0-94.0); MEAN CORPUSCULAR HGB 26.5 pg (27.0-31.0); MEAN CORPUSCULAR HGB CONC 31.3 g/dl (33.0-37.0); MEAN PLATELET VOLUME 10.1 fl (9.6-12.3); PLATELET COUNT AUTOMATED 264 10*3/uL (130-400); RED BLOOD COUNT 3.13 10*6/uL (4.50-5.90); RED CELL DISTRI WIDTH 16.9 % (0-14.5); WHITE BLOOD COUNT 20.2 10*3/uL (4.8-10.8)
[2016-08-20 07:38] LABS: ALBUMIN 1.3 gm/dl (3.1-4.5); BILIRUBIN, DIRECT 0.5 mg/dL (0.0-0.2); CARBON DIOXIDE 21 mmol/L (21-32); CHLORIDE 106 mmol/L (98-107); EST GLOM FILT AFRICAN AMERICAN > 60 ml/min; GLUCOSE 167 mg/dL (65-99); POTASSIUM 3.6 mmol/L (3.5-5.1); SGOT/AST 45 IU/L (3-35); SGPT/ALT 25 U/L (12-78); SODIUM 139 mmol/L (136-145)
[2016-08-20 07:41] LABS: ALKALINE PHOSPHATASE 175 U/L (45-117); BILIRUBIN, TOTAL 0.9 mg/dl (0.2-1.0); TOTAL PROTEIN 5.6 gm/dL (6.4-8.2)
[2016-08-20 07:43] LABS: BUN 23 mg/dl (7-24)
[2016-08-20 08:00] VITALS: BP 152/70
[2016-08-20 08:01] LABS: LYMPHOCYTE # 0.4 10*3/uL (1.3-4.4); METAMYELOCYTES 1 % (0-0); MONOCYTE # 0.8 10*3/uL (0.1-1.0); NEUTROPHIL # 18.8 10*3/uL (2.3-7.9); NEUTROPHILS 93 % (47-73); PLATELET SUFFICIENCY NORMAL (NORMAL); POLYCHROMASIA SLIGHT; TOTAL CELLS COUNTED 100 #CELLS
[2016-08-20 12:00] VITALS: BP 157/63
[2016-08-20 16:00] VITALS: BP 173/61
[2016-08-20 20:00] VITALS: BP 165/73
[2016-08-20 20:30] VITALS: BP 148/64
[2016-08-21] VITALS: BP 152/69
[2016-08-21 06:22] LABS: BASO % 0.2 % (0.0-1.0); EOS # 0.1 10*3/uL (0.0-0.4); EOS % 0.5 % (1.0-4.0); HEMOGLOBIN 8.4 g/dl (14.0-18.0); IG # 0.3 10*3/uL (0.0-0.1); LYMPH # 0.9 10*3/uL (1.3-4.4); LYMPH % 4.6 % (27.0-41.0); MEAN CORPUSCULAR HGB 26.8 pg (27.0-31.0); MEAN CORPUSCULAR HGB CONC 31.1 g/dl (33.0-37.0); MEAN PLATELET VOLUME 9.8 fl (9.6-12.3); MONO # 0.8 10*3/uL (0.1-1.0); MONO % 4.2 % (3.0-9.0); NEUT # 16.5 10*3/uL (2.3-7.9); PLATELET COUNT AUTOMATED 301 10*3/uL (130-400); RED BLOOD COUNT 3.14 10*6/uL (4.50-5.90); RED CELL DISTRI WIDTH 16.8 % (0-14.5); WHITE BLOOD COUNT 18.5 10*3/uL (4.8-10.8)
[2016-08-21 06:49] LABS: ALBUMIN 1.3 gm/dl (3.1-4.5); ALKALINE PHOSPHATASE 186 U/L (45-117); BILIRUBIN, TOTAL 0.8 mg/dl (0.2-1.0); BUN 16 mg/dl (7-24); CARBON DIOXIDE 23 mmol/L (21-32); CHLORIDE 104 mmol/L (98-107); EST GLOM FILT AFRICAN AMERICAN > 60 ml/min; GLUCOSE 141 mg/dL (65-99); POTASSIUM 3.6 mmol/L (3.5-5.1); SGOT/AST 37 IU/L (3-35); SGPT/ALT 23 U/L (12-78); SODIUM 138 mmol/L (136-145); TOTAL PROTEIN 5.7 gm/dL (6.4-8.2)
[2016-08-21 08:00] VITALS: BP 140/75
[2016-08-21 12:00] VITALS: BP 153/73
[2016-08-21 16:00] VITALS: BP 157/80
[2016-08-21 20:00] VITALS: BP 151/79
[2016-08-22] VITALS: BP 128/83
[2016-08-22 08:00] VITALS: BP 152/70
[2016-08-22 12:00] VITALS: BP 155/69
[2016-08-22 16:00] VITALS: BP 148/66
[2016-08-22 20:00] VITALS: BP 141/55
[2016-08-23] VITALS: BP 161/65
[2016-08-23 08:00] VITALS: BP 148/68
[2016-08-23 08:38] LABS: BASO % 0.2 % (0.0-1.0); EOS # 0.1 10*3/uL (0.0-0.4); EOS % 0.9 % (1.0-4.0); HEMATOCRIT 24.9 % (42.0-52.0); HEMOGLOBIN 7.9 g/dl (14.0-18.0); IG # 0.1 10*3/uL (0.0-0.1); LYMPH % 6.9 % (27.0-41.0); MEAN CELL VOLUME 84.4 fl (80.0-94.0); MEAN CORPUSCULAR HGB 26.8 pg (27.0-31.0); MEAN CORPUSCULAR HGB CONC 31.7 g/dl (33.0-37.0); MEAN PLATELET VOLUME 9.4 fl (9.6-12.3); MONO # 0.8 10*3/uL (0.1-1.0); NEUT % 85.4 % (47.0-73.0); PLATELET COUNT AUTOMATED 389 10*3/uL (130-400); RED BLOOD COUNT 2.95 10*6/uL (4.50-5.90); RED CELL DISTRI WIDTH 16.8 % (0-14.5); WHITE BLOOD COUNT 14.1 10*3/uL (4.8-10.8)
[2016-08-23 08:56] LABS: ALBUMIN 1.3 gm/dl (3.1-4.5); ALKALINE PHOSPHATASE 116 U/L (45-117); BILIRUBIN, TOTAL 0.6 mg/dl (0.2-1.0); BUN 12 mg/dl (7-24); CARBON DIOXIDE 25 mmol/L (21-32); CHLORIDE 101 mmol/L (98-107); CKMB 1.5 ng/ml (0.5-3.6); CPK 36 U/L (39-308); EST GLOM FILT AFRICAN AMERICAN > 60 ml/min; GLUCOSE 145 mg/dL (65-99); POTASSIUM 3.4 mmol/L (3.5-5.1); SGOT/AST 31 IU/L (3-35); SGPT/ALT 25 U/L (12-78); SODIUM 137 mmol/L (136-145); TOTAL PROTEIN 5.7 gm/dL (6.4-8.2); TROPONIN I 0.024 ng/ml (<0.045)
[2016-08-23 11:38] LABS: BILIRUBIN NEGATIVE (NEGATIVE); BLOOD 3+ (NEGATIVE); CLARITY CLOUDY (CLEAR); COLOR YELLOW (YELLOW); GLUCOSE NEGATIVE (NEGATIVE); KETONE NEGATIVE (NEGATIVE); LEUKO ESTERASE NEGATIVE (NEGATIVE); NITRITE NEGATIVE (NEGATIVE); PROTEIN NEGATIVE (NEGATIVE); UROBILINOGEN 0.2 E.U./dl (0.2-1.0)
[2016-08-23 11:43] LABS: RBC 41-50 rbc/hpf (0-2)
[2016-08-23 11:44] LABS: BACTERIA TRACE; URINE REFLEX COMMENT YES (NO)
[2016-08-23 16:00] VITALS: BP 142/76
[2016-08-23 20:00] VITALS: BP 145/49
[2016-08-24] VITALS: BP 147/60
[2016-08-24 08:00] VITALS: BP 168/75
[2016-08-24] MEDS ORDERED: ACETAMINOPHEN-O1 TAB PO (10:06)
[2016-08-24] MEDS ORDERED: DUONEB 3 MG/3 ML3 M1 NEB (10:06)
[2016-08-24] MEDS ORDERED: XARE20MG PO (10:06)
[2016-08-24] MEDS ORDERED: SIMVASTATIN10 MG PO (10:06)
[2016-08-24] MEDS ORDERED: COREG3.125 MG PO (10:06)
[2016-08-24] MEDS ORDERED: HUMALOG100 U/ML SC (10:06)
[2016-08-24] MEDS ORDERED: TYLENOL325 M2 PO (10:10)
[2016-08-24] MEDS ORDERED: VANCOMYCIN1.5 GM/251 IV (10:10)
== END 2016-08-24 12:33 | disposition other institution (70) | DRG 871 ==
LOC: ED 17:59 → EDHOLD 20:52 → ICCU 20:52 → 5E 20:52 → ICCU 08-16 09:09 → 4E 08-18 13:58
PROVIDERS: Hospitalist; Internal Medicine; Internal Medicine Hospice and Palliative Medicine; Nurse Practitioner Family; Student in an Organized Health Care Education/Training Program
PROC: BD1BYZZ Fluoroscopy of Mouth/Oropharynx using Other Contrast (ICD-10-PCS; principal; 2016-08-18)
PROC: 05H733Z Insertion of Infusion Device into Right Axillary Vein, Percutaneous Approach (ICD-10-PCS; 2016-08-22)
DX: A41.9 Sepsis, unspecified organism (principal); G93.41 Metabolic encephalopathy; J96.01 Acute respiratory failure with hypoxia; E43 Unspecified severe protein-calorie malnutrition; I11.0 Hypertensive heart disease with heart failure; N17.9 Acute kidney failure, unspecified; I50.22 Chronic systolic (congestive) heart failure; J18.1 Lobar pneumonia, unspecified organism; N39.0 Urinary tract infection, site not specified; N10 Acute pyelonephritis; J44.0 Chronic obstructive pulmonary disease with (acute) lower respiratory infection; E11.40 Type 2 diabetes mellitus with diabetic neuropathy, unspecified; I48.0 Paroxysmal atrial fibrillation; R65.20 Severe sepsis without septic shock; E78.5 Hyperlipidemia, unspecified; F17.210 Nicotine dependence, cigarettes, uncomplicated; E11.65 Type 2 diabetes mellitus with hyperglycemia; E80.6 Other disorders of bilirubin metabolism; E11.49 Type 2 diabetes mellitus with other diabetic neurological complication; M16.11 Unilateral primary osteoarthritis, right hip; E78.1 Pure hyperglyceridemia; J20.9 Acute bronchitis, unspecified; E66.9 Obesity, unspecified; R26.2 Difficulty in walking, not elsewhere classified; B96.89 Other specified bacterial agents as the cause of diseases classified elsewhere; Z68.30 Body mass index [BMI] 30.0-30.9, adult; Z80.0 Family history of malignant neoplasm of digestive organs; Z82.49 Family history of ischemic heart disease and other diseases of the circulatory system; Z79.1 Long term (current) use of non-steroidal anti-inflammatories (NSAID); Z79.899 Other long term (current) drug therapy

== ENCOUNTER 2016-09-29 17:39 | Inpatient (IN) | payer OTHER, MEDICARE ==
[~2016-09-29] VITALS: Ht 177.8 cm; Wt 86.7 kg
--- NOTE | ~2016-09-29 | CON ---
[place], [place] REPORT OF CONSULTATION [id number] UN[facility] #: [id number] ROOM: 522 DOCTOR: BRISA COLLADO MD BIRTHDATE: [birth year] DOS: 09/30/2016 History and physical examination covering for Dr. Reynolds. REASON FOR ADMISSION: Possibility to GI bleeding. HISTORY OF PRESENT ILLNESS: This is a 70-year-old white male, who had been sent from the [facility] because of the routine blood work of the patient done showed a significant elevation of white cell count. The patient was also noted with urinary tract infection. He had been treated for that. The patient was noted with gradual anemia of the patient as compared with previous labs and recommended for hospitalization. The patient has been currently admitted to the hospital for further care. Upon questioning, the patient denies any symptoms of shortness of breath. He was noted to be a limited historian. Denied symptoms of hemoptysis, coughing, or sputum expectoration. REVIEW OF SYSTEMS: CONSTITUTIONAL SYMPTOMS: He was complaining of some fatigue and tiredness. Denies symptoms of fever or chills. EYES: Denies any burning, redness, or tenderness. CARDIOVASCULAR: Denies any symptoms of anginal pain, edema, or pain of the lower extremities. GASTROINTESTINAL SYMPTOMS: The patient has failure to thrive. The patient is with a 30-pound weight loss. The patient denies symptoms of nausea, vomiting, diarrhea, hematemesis, melena, or hematochezia. GENITOURINARY SYMPTOMS: Denies dysuria or hematuria, recently treated for urinary tract infection, which has been noted recurrent urinary tract infection, currently denied any burning sensation or urinary incontinence. MUSCULOSKELETAL SYMPTOMS: The patient was noted with severe degenerative arthritis of the patient's hip and was planned for hip surgery for the patient, but this was not done because of recurrent urinary tract infection. The surgery has been postponed. CENTRAL NERVOUS SYSTEM: Denies dizziness, headache, diplopia, or syncopal episodes. The remaining systems were reviewed with the patient, limited but noted as negative. PAST MEDICAL HISTORY: The patient was known with history of: 1. Type 2 diabetes mellitus. 2. COPD. 3. Diabetic neuropathy. 4. Hyperlipidemia. 5. Essential hypertension. 6. Hypertriglyceridemia. 7. Inability to ambulate because of the hip arthritis. 8. Failure to thrive. 9. Progressive anemia of the patient, rule out GI bleeding. 10. Osteoarthritis. 11. Paroxysmal atrial fibrillation. [place], [place] REPORT OF CONSULTATION NAME: BETH DOBBINS UNIT #: [id number] ROOM: 522 DOCTOR: BRISA COLLADO MD BIRTHDATE: [birth year] PAST SURGICAL HISTORY: Of the patient was noted as: 1. Cervical fusion. 2. Tonsillectomy. 3. Foot surgery. 4. Bilateral cataract extraction and lens implantation. 5. Past PICC line insertion. SOCIAL HISTORY: The patient is currently a resident of a senior care, has been noted with tobacco use since teenager, 2 packs of cigarettes per day, and stated that he has not been smoking cigarettes at present. Denies any history of alcohol or illicit drug use. FAMILY HISTORY: Noted as father at age 90 years of old age. Mother at 70 years old of complications related to pancreatic cancer. MEDICATIONS: For this patient, which were noted on admission as use of Percocet, Colace, simvastatin, DuoNeb, Neurontin, Flexeril, Tylenol, Remeron, MiraLax, Xarelto, and omeprazole. The patient was also taking aspirin, Imdur, Aldactone, and hydralazine. ALLERGIES: Drug allergy history of the patient was noted as no known drug allergies. PHYSICAL EXAMINATION: GENERAL: A 70-year-old male patient, who has been currently noted as awake and alert without any distress. VITAL SIGNS: Height of 5 feet 10 inches, weight of 191 pounds, BMI 27.4 at this time was reported by the nursing staff. The vital signs of the patient showed temperature was noted as normal, respiratory rate of 18-22, heart rate of 80-93, blood pressure 130/70 to 160/70. Intake for the patient was 1120, the output was 1150 mL. Pulse oxygen saturation on room air was 92% saturation. HEENT: Examination shows head is atraumatic. Eyes nonicteric. NECK: Supple. CARDIOVASCULAR: S1, S2 audible. LUNGS: The patient was noted without any wheezing or crackles. ABDOMEN: Flat, soft, nontender. Bowel sounds present. CENTRAL NERVOUS SYSTEM: The patient was noted without any focal deficits. Cranial nerves 2-12 intact. MUSCULOSKELETAL: No acute deformities. SKIN: Showed no lesions or rashes. LABORATORY DATA: CBC of the patient that was done as outpatient is hemoglobin of 8.9, hematocrit 29.8, WBC count 11.2, platelet count elevated 407,000. The hemoglobin and hematocrit were noted as hemoglobin of 8.1 and hematocrit of 26.1 yesterday as an outpatient. CBC for this patient 08:27 in the Emergency Room, hemoglobin 8, hematocrit 25.4, platelet count 345,000. CMP of the patient, BUN 36, creatinine 2.20, glucose 137. CBC this morning, hemoglobin 8.4, hematocrit 27.2, platelet count was normal, WBC count was normal. CMP, BUN 32, creatinine 2.02 was noted. Albumin was 2.2. [place], [place] REPORT OF CONSULTATION NAME: BETH DOBBINS UNIT #: [id number] ROOM: 522 DOCTOR: DAPHNE MCMAHON MD,BRISA BIRTHDATE: [birth year] Chest x-ray, one view for the patient that was done for the patient on 09/29/2016 shows no acute abnormalities except hyperinflation changes of COPD were noted. Review of the past labs for this patient on 09/07/2016 previous admission noted as creatinine of 2.60 at that time as the highest creatinine. IMPRESSION: 1. The patient who has been currently noted with severe degenerative arthritis for the patient, currently admitted to the hospital because of abnormal labs with suspected gastrointestinal bleeding for the patient, for progressive gradual anemia. 2. The patient with chronic kidney disease stage III, most likely related to the diabetes mellitus for the patient was also considered. Creatinine of the patient has been noted to be gradually reduced for this patient since his recent admission a few weeks ago in this hospital. 3. History of chronic obstructive pulmonary disease and multiple other medical problems as known in the past. PLAN OF TREATMENT: GI consultation has been ordered. The type and crossmatch of the blood for this patient has been completed. Blood transfusion could be ordered for this patient in case of further progression of the anemia with hematocrit less than 25. Since the patient does not require any acute blood transfusion at this time, other supportive therapy, plan, and management to be continued. The patient's care will be turned back to Dr. Reynolds for the patient upon return tomorrow morning. The patient has been ordered a regular diet for this patient per request of the patient's family members. They wished the patient not to be started on the 2000 calorie ADA diet because of the previous of hypoglycemia. BRISA SERNA MD CM:CONSTR:REPORT OF CONSULTATION 1146 10/01/16 0535 interface
--- NOTE | ~2016-09-29 | PR ---
[place], [place] PROGRESS NOTE NAME: BETH DOBBINS [facility] #: [id number] UNIT #: [id number] ROOM: 522 DOCTOR: NATE AVINA MD BIRTHDATE: [birth year] DOS: 10/01/2016 SUBJECTIVE: The patient is quite sleepy, did not want to be bothered and did not answer any questions. OBJECTIVE: VITAL SIGNS: Pressure is 123/76, pulse of 93, respirations 18, temperature 99.0. LUNGS: Diminished breath sounds, clear. HEART: Irregular. ABDOMEN: Soft. EXTREMITIES: Without any edema. ASSESSMENT AND PLAN: 1. Anemia, iron deficiency, status post endoscopy showing possible iron deficiency. Ferritin levels are pending. The patient did have an endoscopy, showed minimal gastritis. I spoke to Dr. Sweeney. He will schedule him for a colonoscopy on Monday. 2. Adult failure to thrive needing right hip surgery. 3. Chronic renal insufficiency with a GFR of 37, on slow IV hydration. 4. History of type 2 diabetes mellitus, which is diet controlled. Incidentally noted is this one blood sugar of 365, not on any medicines. Benefit from possible low dose antidiabetics, but he had a severe hypoglycemic spell recently, so we will avoid it right now. NATE AVINA MD CM:PNTRANS [phone] NATE AVINA MD 10/02/16 0047 interface
--- NOTE | ~2016-09-29 | PR ---
[place], [place] PROGRESS NOTE NAME: BETH DOBBINS [facility] #: [id number] UNIT #: [id number] ROOM: 522 DOCTOR: NATE AVINA MD BIRTHDATE: [birth year] DOS: 10/04/2016 SUBJECTIVE: The patient has no new complaints today other than his pain. OBJECTIVE: VITAL SIGNS: Graphic trend shows a pressure of 148/86, pulse of 87, respirations 20, temperature 97.9. LUNGS: Clear. HEART: Irregular. ABDOMEN: Obese, soft, nontender. EXTREMITIES: Without any edema. LABORATORY DATA: WBC count is 8.9, hemoglobin 8.1, hematocrit 25.6, platelets 290. BMP: Glucose 138, BUN 16, creatinine 1.57. Electrolytes were normal. ASSESSMENT AND PLAN: 1. Failure to thrive adult, to go to [facility] when insurance precertification is obtained. 2. Primary osteoarthritis of the right hip. The patient is cleared for surgery whenever Dr. Hazel wants to do it. 3. Anemia, chronic iron deficiency. The patient will have a consultation with Dr. Mart, discuss with him before we can restart his anticoagulants. 4. Chronic atrial fibrillation, controlled rate. Again, we will restart the anticoagulants when Dr. Mart clears him for it. 5. Positive Hemoccult. The patient did undergo a colonoscopy, a polyp was removed. Pathology is not available yet, but nothing unusual was noticed during the colonoscopy. NATE AVINA MD CM:PNTRANS [id number] NATE AVINA MD 10/05/16 0104 interface
--- NOTE | ~2016-09-29 | DS ---
[place], [place] DISCHARGE SUMMARY NAME: BETH DOBBINS [facility] #: [id number] UNIT #: [id number] ROOM: 522 DOCTOR: NATE AVINA MD BIRTHDATE: [birth year] DOS: 10/05/2016 DIAGNOSES: 1. Metabolic encephalopathy, urinary tract infection, ruled out. 2. Primary osteoarthritis of right hip with adult failure to thrive. The patient to go to [facility] today. 3. Possible myelodysplastic syndromes. 4. Endoscopy and colonoscopy with the polypectomy and antral gastritis. Polyp pathology is not available yet. 5. Mixed hyperlipidemia. 6. Benign hypertension. 7. Paroxysmal atrial fibrillation. DISCHARGE MEDICATIONS: Will be iron 325 daily, Xarelto 10 mg daily, Percocet 10 one tablet q.6 hours p.r.n., Colace 100 at bedtime, simvastatin 10 daily, DuoNeb q.4h., gabapentin 800 t.i.d., Flexeril 10 t.i.d., Tylenol 650 q.6h. p.r.n., carvedilol 6.25 twice a day, Remeron 15 at bedtime, MiraLax 17 grams b.i.d., omeprazole 20 daily. HOSPITAL COURSE: This patient is 70 years old, comes in with complaints that he has had chronic anemia and there is some confusion involved this time with an elevated white cell count. H and P was dictated by Dr. Guthrie. Please review the H and P for further details. The patient had a CT of the abdomen and pelvis, which was negative. Dr. Sweeney was consulted. Endoscopy was performed, which showed antral gastritis. Colonoscopy was performed, which showed polyps and diverticulosis. Polypectomy was performed. We do not have the pathology of the polyp yet. He did receive blood transfusion and continues to be anemic raising the possibility of a bone marrow issue, so Dr. Mart was consulted and the possibility of MDS was raised. The patient is overall stable and improved and is not having any new problems. His last CBC on 10/04/2016, shows a hemoglobin of 8.1. He has been restarted on a low dose Xarelto for his paroxysmal atrial fibrillation. PT/OT has been consulted and he has been ambulating with therapist. Social service was consulted and the patient is [facility] Please make sure the patient is seen by Dr. Mart sometime next week and please consult Dr. Hazel to let her know that he is cleared for surgery. [place], [place] DISCHARGE SUMMARY NAME: BETH DOBBINS UNIT #: [id number] ROOM: 522 DOCTOR: NATE AVINA MD BIRTHDATE: [birth year] NATE AVINA MD CM:DISCHARG [id number] [id number] NATE AVINA MD 10/05/16 1052 interface
--- NOTE | ~2016-09-29 | O ---
[place], [place] OPERATIVE NOTE NAME: BETH DOBBINS UNIT #: [id number] ROOM: 522 DOCTOR: MAMTA VALENTE MD BIRTHDATE: [birth year] DOS: 09/30/2016 GASTROENDOSCOPIC REPORT HISTORY OF PRESENT ILLNESS: This gentleman is a 70-year-old who has presented with H and H of 8.5 and 27.8. CBC follow up repeatedly revealed the same numbers. His platelets were . His BUN and creatinine 36 and 2.2, GFR of 36. Electrolytes balanced. Liver function test normal. Chest x-ray, no acute process. CBC differential within normal limits. Comprehensive metabolic panel reassessed. His urinalysis with protein 2+ and blood 3+ was noticed. PAST MEDICAL HISTORY: COPD, diabetes mellitus, hyperlipidemia, hypertension, osteoarthritis, history of atrial fibrillation, renal insufficiency, all has been recognized, and COPD noticed. PAST SURGICAL HISTORY: Neck, podiatric surgery and tonsillectomy. SOCIAL HISTORY: Nonsmoker, nonalcohol consumer. FAMILY HISTORY: Noncontributory. ALLERGIES: To no known medication. MEDICATIONS: List has been reviewed including omeprazole and aspirin. PROCEDURE: Today's procedure part of investigation for cause of epigastric distress and anemia is panendoscopy plus biopsy. PREMEDICATION: Versed and Diprivan. SCOPE: Olympus forward-viewing gastroscope Q10 video. REPORT: After putting the patient in left lateral position and application of lubricant to the scope, the scope was introduced. Thereafter, under direct visualization, I advanced through the length of the esophagus without difficulty. Mild gastritis seen. Antrum was biopsied. Duodenal bulb, second and third part within normal limits. The patient extubated, tolerated procedure well. IMPRESSION: Mild gastritis, anemia, renal failure, diabetes mellitus, hypertension, hyperlipidemia, chronic obstructive pulmonary disease, all has been recognized. PLAN AND DISCUSSION: Eventually, this patient requires a colonoscopy that can be organized as an outpatient since he does not have active bleeding. [place], [place] OPERATIVE NOTE NAME: BETH DOBBINS UNIT #: [id number] ROOM: 522 DOCTOR: MAMTA VALENTE MD BIRTHDATE: [birth year] MAMTA VALENTE MD CM:SOURAV:OPERATIVE NOTE 12 04 MAMTA VALENTE MD 09/30/16 2306 interface
--- NOTE | ~2016-09-29 | PR ---
[place], [place] PROGRESS NOTE NAME: BETH DOBBINS [facility] #: [id number] UNIT #: [id number] ROOM: 522 DOCTOR: NATE AVINA MD BIRTHDATE: [birth year] DOS: 10/02/2016 SUBJECTIVE: The patient is awake and alert and oriented, complains of pain in his right hip. We does not have any other complaints otherwise. OBJECTIVE: VITAL SIGNS: Pressure is 153/76, pulse of 77, respirations 18, temperature 98.6. LUNGS: Diminished breath sounds. HEART: Regular. ABDOMEN: Obese, soft, nontender. EXTREMITIES: Without any edema. LABORATORY DATA: Iron is 28. Urine culture shows no bacterial growth. White cell count is 8.5, hemoglobin 8.5, hematocrit 28.3. ASSESSMENT AND PLAN: 1. The patient comes in with complaints of abdominal pain with a negative CT of the abdomen. The patient to have a colonoscopy on Monday. Discussed with Dr. Sweeney. 2. Iron deficiency anemia. Again, iron supplements IV will be given today, p.o. iron will be started after the colonoscopy is over. 3. Severe primary osteoarthritis of the right hip, necessitating right hip surgery. The patient is cleared for surgery. 4. Chronic renal failure, stable. We can discontinue the IV fluids at least cut down on the fluids. NATE AVINA MD CM:PNTRANS [phone] NATE AVINA MD 10/02/161922 interface
--- NOTE | ~2016-09-29 | PR ---
[place], [place] PROGRESS NOTE NAME: BETH DOBBINS [facility] #: [id number] UNIT #: [id number] ROOM: 522 DOCTOR: NATE AVINA MD BIRTHDATE: [birth year] DOS: SUBJECTIVE: The patient has no complaints today. He is wide awake and alert and oriented. OBJECTIVE: VITAL SIGNS: Blood pressure is 138/58, pulse is 75, respirations 20, temperature 98.7. LUNGS: Diminished breath sounds. No wheezes heard. HEART: Irregular. ABDOMEN: Soft, scaphoid, nontender. EXTREMITIES: Without any edema. ASSESSMENT AND PLAN: 1. Chronic anemia, iron deficiency, supplements have been ordered. 2. Encephalopathy, resolved after the anemia was corrected. Endoscopy/colonoscopy was performed. 2. Primary osteoarthritis of the joint with adult failure to thrive, to go to [facility] today. NATE AVINA MD CM:PNTRANS 0738 [id number] NATE AVINA MD 10/05/16 2307 interface
--- NOTE | ~2016-09-29 | PR ---
[place], [place] PROGRESS NOTE NAME: BETH DOBBINS [facility] #: [id number] UNIT #: [id number] ROOM: 522 DOCTOR: NATE AVINA MD BIRTHDATE: [birth year] DOS: 10/03/2016 SUBJECTIVE: The patient is awaiting a colonoscopy today. He does not have any complaints otherwise. OBJECTIVE: VITAL SIGNS: Graphic trend shows a pressure 119/78, pulse of 85, respirations 16, afebrile. HEENT: Unremarkable. LUNGS: Clear. HEART: Regular. ABDOMEN: Soft, nontender. EXTREMITIES: Without any edema. LABORATORY DATA: B12 was normal. Ferritin is 327.3 and folic acid is 14.1. Iron was 28. No other labs available today. Urine culture shows no bacterial growth. ASSESSMENT AND PLAN: 1. Anemia, possible deficiency. The patient will have a colonoscopy today after that he should be started on supplements. 2. Primary osteoarthritis of the right hip requiring surgery. 3. Encephalopathy, which is resolved, possibly urinary tract infection has been ruled out. 4. Adult failure to thrive. Social service will be consulted for discharge planning. NATE AVINA MD CM:PNTRANS [id number] NATE AVINA MD 10/04/16 0747 interface
--- NOTE | ~2016-09-29 | CON ---
[place], [place] REPORT OF CONSULTATION [id number] UNIT #: [id number] ROOM: 522 DOCTOR: DARLENE FRIAS MD BIRTHDATE: [birth year] DOS: 10/04/2016 HISTORY OF PRESENT ILLNESS: The patient is a pleasant 70-year-old Euro-Chinese gentleman, sent from [facility]. Later on routine CBC examination, he was found to have initially leukocytosis. He was also noted to have progressive anemia. He underwent polypectomy and a colonoscopy by Dr. Sweeney. His hemoglobin and hematocrit continues to be low and he is consulted for further evaluation and management. PAST MEDICAL HISTORY: Significant for type 2 diabetes, COPD, diabetic nephropathy, hyperlipidemia, essential hypertension, hypertriglyceridemia, unable to ambulate because of severe arthritis of the hip, failure to thrive, osteoarthritis, paroxysmal atrial fibrillation. PAST SURGICAL HISTORY: Cervical fusion, tonsillectomy, foot surgery, bilateral cataract extraction and lens implantation, past PICC line insertion. SOCIAL HISTORY: Currently resident of custodial. He used to smoke about 2 packs per day since teenager. Denies any alcohol or drug abuse. FAMILY HISTORY: Father at age 90. Mother at age 70 of complicated of pancreatic cancer. MEDICATIONS: On simvastatin, Colace, Percocet, Neurontin, Flexeril, Tylenol, Remeron, MiraLax, Xarelto, omeprazole, aspirin, Imdur, Aldactone, hydralazine. ALLERGIES: No known allergies. REVIEW OF SYSTEMS CONSTITUTIONAL: No chills. No fatigue. No fever. No loss of appetite. No night sweats. No weakness. No weight loss. HEENT: No trouble swallowing. No loss of smell. No loss of hearing. No double vision. No pain. No discharge. ENT AND RESPIRATORY: No wheeze. No sore throat. No change in voice. No hearing loss. No nose bleed. No cough. No trouble breathing through nose. No shortness of breath. No coughing up blood. No epistaxis. CARDIOVASCULAR: No chest pain. No dizziness. No irregular heartbeat. No leg edema. No pain in legs while walking. No palpitations. No shortness of breath. DERMATOLOGIC: No acne. No hives. No laceration. No mole. No rash. ENDOCRINE: No cold intolerance. No diabetes. No fatigue. No hot flashes. No polydipsia. No polyuria. No urinating frequently. No weight loss. HEMATOLOGIC AND LYMPH: No fatigue. No easy bruising. GASTROENTEROLOGIC: No change in bowel habits. No indigestion. No frequent bloating. No vomiting blood. No abdominal cramping. No nausea. No heartburn. No vomiting. No abdominal pain. No dysphagia. No diarrhea. No constipation. No blood in stool. MALE REPRODUCTIVE: No testicular pain. No difficulty with erection. No diminished sexual drive. No penile discharge. MUSCULOSKELETAL: No back pain. No muscle pain or weakness. No neck pain. No [place], [place] REPORT OF CONSULTATION NAME: BETH DOBBINS UNIT #: [id number] ROOM: 522 DOCTOR: DARLENE FRIAS MD BIRTHDATE: [birth year] tingling/numbness. No swelling/bruising. No osteoporosis treatment. OPTHALMOLOGIC: No double vision. No diminished vision. No loss of vision. UROLOGIC: No dysuria. No frequent nighttime urination. No pain with urination. No difficulty urinating. No blood in urine. No frequent urination. No urinary incontinence. NEUROLOGIC: No loss of sensation in specific body area. No vertigo. No burning pain in feet. No trouble with balance. No trouble with coordination. No loss of consciousness. No loss of feeling/power. No confusion. No headache. No tingling/numbness. PSYCHOLOGIC: No tinnitus. No headaches. No shortness of breath. No weight decrease. No nausea. No vomiting. No abdominal discomfort. No constipation. No diarrhea. No depression. No anxiety. PHYSICAL EXAMINATION: GENERAL: Pleasant gentleman, in no apparent distress. VITAL SIGNS: Stable, afebrile. HEENT: Oral mucosa appears intact. The external ears are normal in appearance. Nares are patent without lesions, exudates, erythema, or inflammation. Tongue is symmetrical. Uvula is midline. NECK AND THYROID: Neck supple without palpable masses. Trachea is midline. No thyromegaly. No carotid bruit or JVD. BREASTS: Normal. Nipples unremarkable. No drainage. No lumps felt on either side. HEART: Normal S1, S2, without significant murmur, rub, or gallop. LUNGS: Clear to auscultation and percussion with good air entry bilaterally. The patient is breathing easily without the use of accessory muscles. Diaphragmatic excursions are intact. ABDOMEN: No costovertebral angle tenderness. Soft. No organomegaly or masses. Nontender. No hernias present. Liver and spleen are not palpable. LYMPHATIC: No adenopathy noted in the cervical, supraclavicular, axillary, or inguinal regions. NEUROLGIC: Nonfocal. Oriented to person, place, and time. MENTAL STATUS: Appropriate for mood and affect. PERIPHERAL PULSES: No varicosities. Femoral and pedal pulses are palpable. EXTREMITIES: Without cyanosis, clubbing, or edema. No gross anomalies. LABORATORY DATA: White count of 8.9, hemoglobin 8.1, hematocrit 25.6, platelet count 290. Chemistries: Glucose of 138, BUN 16, EGFR is 44. Total protein 6.7, SGPT is 11, SGOT is 19, TIBC is 173. Iron is 28, saturation is 10, B12 is 1141, ferritin 327.3, folic acid is 14.41. ASSESSMENT: 1. Anemia of unknown etiology, probably a component of iron deficiency. 2. High ferritin. 3. Status post colonoscopy, which did not show evidence of any gastrointestinal bleed. PLAN: I had detailed discussion with the patient. We will review peripheral smears, ferritin, and acute phase reactant. This is a possibility that could be high because of that reason. I will keep a close on the counts. He will need a [place], [place] REPORT OF CONSULTATION NAME: BETH DOBBINS UNIT #: [id number] ROOM: 522 DOCTOR: DARLENE FRIAS MD BIRTHDATE: [birth year] bone marrow biopsy if counts do not improve. In the meantime, we will get hemolytic workup, SPEP, UPEP as well as retic count, etc. Depending upon that, further intervention discussed. We will follow. Thanks for consulting and letting me participate in the care of this interesting patient. DARLENE FRIAS MD CM:CONSTR:REPORT OF CONSULTATION 1438 10/05/16 1205 interface
--- NOTE | ~2016-09-29 | O ---
[place], [place] OPERATIVE NOTE [facility] [id number] UNIT #: [id number] ROOM: 522 DOCTOR: AMBROSIO BARRAGAN,MAMTA BIRTHDATE: [birth year] DOS: 10/03/2016 INDICATIONS: The patient has presented with chief complaint of anemia, multiple medical issues among which has been his anemia, status post transfusion. PROCEDURE: Today's procedure part of investigation is colonoscopy and polypectomy. PREMEDICATION: Versed and Diprivan. SCOPE: Olympus forward-viewing colonoscope 10L video. REPORT: After putting the patient in the left lateral position and after application of lubricant to rectal pouch and digital examination, scope was introduced. Thereafter, under direct visualization, I advanced through the length of colon without difficulty. Base of cecum was approached, appendiceal orifice identified, ileocecal valve was identified and photographed. The scope was gradually withdrawn. Diverticulosis of sigmoid colon was appreciated. Snare applied and on the neck of a polypoid lesion and rectal pouch, which is a sessile in character removed entirely, samples recovered tolerated the procedure well. IMPRESSION: Diverticulosis of redundant colon, polypoid lesion rectal pouch, status post snare polypectomy. PLAN: Resumption of feeding and supportive management. Case was discussed with the family. They are contend with the findings. No evidence of bleeding. Anticoagulation should be considered as the cause of his blood loss anemia. MAMTA VALENTE MD CM:OPRECORD:OPERATIVE NOTE [id number] MAMTA VALENTE MD 10/03/[id number] interface
--- NOTE | ~2016-09-29 | PR ---
[place], [place] PROGRESS NOTE NAME: BETH DOBBINS [facility] #: [id number] UNIT #: [id number] ROOM: 522 DOCTOR: DARLENE FRIAS MD BIRTHDATE: [birth year] DOS: 10/05/2016 SUBJECTIVE: The patient is doing better. He is more alert, oriented. OBJECTIVE: GENERAL: He is a pleasant gentleman in no apparent distress. VITAL SIGNS: Stable. He is afebrile. HEENT: Normocephalic, atraumatic. NECK AND THYROID: Supple. No JVD, thyromegaly, or lymphadenopathy. HEART: Normal S1, S2. Regular rate and rhythm. LUNGS: Clear to auscultation and percussion. ABDOMEN: Soft. Nontender, nondistended. Bowel sounds present. EXTREMITIES: Normal ROM. No clubbing. No edema. LABORATORY DATA: White count of 8.9, hemoglobin 8.1, hematocrit 25.6, platelet count 290. Chemistries: TIBC of 173, iron 28, saturation is 10, EGFR is 44. B12 is 1141, ferritin of 327.3, folic acid is 14.41. ASSESSMENT: 1. Anemia, probably of chronic disease. 2. Chronic kidney disease. 3. Status post metabolic encephalopathy. 4. Status post upper and lower endoscopy with status polypectomy and antral gastritis with path pending. PLAN: Discussed with Dr. Marino. A workup has been ordered. We will wait for the workup to come back depending on the further intervention. If things do not improve, may need further intervention including a bone marrow biopsy. Hemolytic workup has also been started. I had detailed discussion with the patient about it, seemed to understand it. Ample time was given for the patient to ask me questions. DARLENE FRIAS MD CM:PNTRANS [id number] DARLENE FRIAS MD 10/06/16 0053 interface
[2016-09-29 17:39] VITALS: BP 127/71
[~2016-09-29 17:39] MED LIST changes: +ACETAMINOPHEN-O1 TAB PO; +ALDACTONE25 M1 PO; +APRESOLINE25 MG PO; +ASPIRIN CHEWABL81 MG PO; +CARVEDILOL3.125 MG PO; +CARVEDILOL6.25 MG PO; +CEFUROXIME AXE250 MG PO; +CENTRUM SILVER1 EACH PO; +COLACE100 MG PO; +COREG3.125 MG PO; +CYCLOBENZAPRINE10 MG PO; +DUONEB 3 MG/3 ML3 M1 INH; +DUONEB 3 MG/3 ML3 M1 NEB; +ENOXAPARIN30 MG/0.2 SC; +GABAPENTIN800 MG PO; +GLYBURIDE2.5 MG PO; +HUMALOG100 U/ML SC; +HUMALOG100 UNIT/2 SQ; +IMDUR SA30 MG PO; +LISINOPRIL5 MG PO; +MAPAP ARTHRITI650 MG PO; +PANTOPRAZOLE SO40 MG PO; +PERCOCET 325 MG1 TA7 PO; +PRAVASTATIN SOD20 MG PO; +SIMVASTATIN10 MG PO; +TYLENOL325 M2 PO; +VANCOMYCIN1.5 GM/251 IV; +XARE20MG PO
[2016-09-29] MEDS ORDERED: MIRTAZAPINE15 M2 PO (17:48)
[2016-09-29] MEDS ORDERED: GLYCOLAX119 GM PO (17:49)
[2016-09-29] MEDS ORDERED: XARE20MG PO (17:50)
[2016-09-29] MEDS ORDERED: OMEPRAZOLE20 M2 PO (17:51)
[2016-09-29 18:05] LABS: BASO % 0.3 % (0.0-1.0); EOS # 0.2 10*3/uL (0.0-0.4); EOS % 1.5 % (1.0-4.0); HEMATOCRIT 25.4 % (42.0-52.0); IG # 0.1 10*3/uL (0.0-0.1); LYMPH % 9.4 % (27.0-41.0); MEAN CELL VOLUME 86.1 fl (80.0-94.0); MEAN CORPUSCULAR HGB 27.1 pg (27.0-31.0); MEAN CORPUSCULAR HGB CONC 31.5 g/dl (33.0-37.0); MEAN PLATELET VOLUME 9.4 fl (9.6-12.3); MONO % 9.6 % (3.0-9.0); NEUT # 8.5 10*3/uL (2.3-7.9); NEUT % 78.7 % (47.0-73.0); PLATELET COUNT AUTOMATED 345 10*3/uL (130-400); RED BLOOD COUNT 2.95 10*6/uL (4.50-5.90); RED CELL DISTRI WIDTH 15.9 % (0-14.5); WHITE BLOOD COUNT 10.8 10*3/uL (4.8-10.8)
[2016-09-29 18:22] LABS: ALBUMIN 2.4 gm/dl (3.1-4.5); BILIRUBIN, TOTAL 0.4 mg/dl (0.2-1.0); POTASSIUM 4.6 mmol/L (3.5-5.1); TOTAL PROTEIN 7.2 gm/dL (6.4-8.2)
[2016-09-29 19:40] LABS: BILIRUBIN NEGATIVE (NEGATIVE); BLOOD 3+ (NEGATIVE); CLARITY SL CLOUDY (CLEAR); COLOR YELLOW (YELLOW); GLUCOSE TRACE (NEGATIVE); KETONE NEGATIVE (NEGATIVE); LEUKO ESTERASE NEGATIVE (NEGATIVE); NITRITE NEGATIVE (NEGATIVE); PROTEIN 2+ (NEGATIVE); SPECIFIC GRAVITY 1.015 (1.005-1.030); UROBILINOGEN 0.2 E.U./dl (0.2-1.0)
[2016-09-29 19:57] LABS: RBC TNTC rbc/hpf (0-2); URINE REFLEX COMMENT YES (NO)
[2016-09-29 20:45] VITALS: BP 150/66
[2016-09-30] VITALS (9 sets, daily range): BP systolic 130–166; BP diastolic 68–85
[2016-09-30 07:04] LABS: BASO % 0.3 % (0.0-1.0); EOS # 0.2 10*3/uL (0.0-0.4); EOS % 1.9 % (1.0-4.0); HEMATOCRIT 27.2 % (42.0-52.0); HEMOGLOBIN 8.4 g/dl (14.0-18.0); LYMPH # 0.9 10*3/uL (1.3-4.4); LYMPH % 9.7 % (27.0-41.0); MEAN CELL VOLUME 86.3 fl (80.0-94.0); MEAN CORPUSCULAR HGB 26.7 pg (27.0-31.0); MEAN CORPUSCULAR HGB CONC 30.9 g/dl (33.0-37.0); MEAN PLATELET VOLUME 9.1 fl (9.6-12.3); MONO % 10.4 % (3.0-9.0); NEUT # 7.2 10*3/uL (2.3-7.9); NEUT % 77.4 % (47.0-73.0); PLATELET COUNT AUTOMATED 356 10*3/uL (130-400); RED BLOOD COUNT 3.15 10*6/uL (4.50-5.90); RED CELL DISTRI WIDTH 15.9 % (0-14.5); WHITE BLOOD COUNT 9.3 10*3/uL (4.8-10.8)
[2016-09-30 07:22] LABS: ALBUMIN 2.2 gm/dl (3.1-4.5); BILIRUBIN, TOTAL 0.6 mg/dl (0.2-1.0); POTASSIUM 4.6 mmol/L (3.5-5.1); TOTAL PROTEIN 6.9 gm/dL (6.4-8.2)
[2016-10-01] VITALS: BP 123/76
[2016-10-01 06:22] LABS: BASO % 0.4 % (0.0-1.0); EOS # 0.2 10*3/uL (0.0-0.4); EOS % 2.8 % (1.0-4.0); HEMATOCRIT 25.3 % (42.0-52.0); HEMOGLOBIN 7.8 g/dl (14.0-18.0); LYMPH # 1.2 10*3/uL (1.3-4.4); LYMPH % 15.6 % (27.0-41.0); MEAN CELL VOLUME 87.2 fl (80.0-94.0); MEAN CORPUSCULAR HGB 26.9 pg (27.0-31.0); MEAN CORPUSCULAR HGB CONC 30.8 g/dl (33.0-37.0); MONO % 12.7 % (3.0-9.0); NEUT # 5.2 10*3/uL (2.3-7.9); NEUT % 68.2 % (47.0-73.0); PLATELET COUNT AUTOMATED 322 10*3/uL (130-400); RED CELL DISTRI WIDTH 15.8 % (0-14.5); WHITE BLOOD COUNT 7.6 10*3/uL (4.8-10.8)
[2016-10-01 06:53] LABS: ALBUMIN 2.1 gm/dl (3.1-4.5); BILIRUBIN, TOTAL 0.4 mg/dl (0.2-1.0); POTASSIUM 4.2 mmol/L (3.5-5.1)
[2016-10-01 06:54] LABS: TOTAL PROTEIN 6.4 gm/dL (6.4-8.2)
[2016-10-01 08:00] VITALS: BP 146/66
[2016-10-01 12:00] VITALS: BP 145/89
[2016-10-01 16:00] VITALS: BP 154/70
[2016-10-01 20:00] VITALS: BP 160/92
[2016-10-01 22:00] VITALS: BP 164/90
[2016-10-02 02:00] VITALS: BP 153/76
[2016-10-02 06:12] LABS: BASO % 0.2 % (0.0-1.0); EOS # 0.3 10*3/uL (0.0-0.4); EOS % 3.4 % (1.0-4.0); HEMATOCRIT 28.3 % (42.0-52.0); HEMOGLOBIN 8.5 g/dl (14.0-18.0); LYMPH # 1.1 10*3/uL (1.3-4.4); LYMPH % 12.5 % (27.0-41.0); MEAN CELL VOLUME 88.2 fl (80.0-94.0); MEAN CORPUSCULAR HGB 26.5 pg (27.0-31.0); MEAN PLATELET VOLUME 9.4 fl (9.6-12.3); MONO # 0.9 10*3/uL (0.1-1.0); MONO % 10.9 % (3.0-9.0); NEUT # 6.1 10*3/uL (2.3-7.9); NEUT % 72.6 % (47.0-73.0); PLATELET COUNT AUTOMATED 374 10*3/uL (130-400); RED BLOOD COUNT 3.21 10*6/uL (4.50-5.90); RED CELL DISTRI WIDTH 15.8 % (0-14.5); WHITE BLOOD COUNT 8.5 10*3/uL (4.8-10.8)
[2016-10-02 06:42] LABS: ALBUMIN 2.2 gm/dl (3.1-4.5); POTASSIUM 4.8 mmol/L (3.5-5.1)
[2016-10-02 06:47] LABS: BILIRUBIN, TOTAL 0.4 mg/dl (0.2-1.0); TOTAL PROTEIN 6.7 gm/dL (6.4-8.2)
[2016-10-02 08:00] VITALS: BP 154/75
[2016-10-02 12:00] VITALS: BP 145/73
[2016-10-02 16:00] VITALS: BP 164/68
[2016-10-02 20:00] VITALS: BP 147/65
[2016-10-03] VITALS (8 sets, daily range): BP systolic 100–148; BP diastolic 41–90
[2016-10-03 11:35] LABS: FERRITIN 327.3 ng/mL (22.0-322.0); FOLIC ACID 14.41 ng/mL (>5.38)
[2016-10-03] MEDS ORDERED: XARELTO10 MG PO (14:01)
[2016-10-03] MEDS ORDERED: FEROSUL325 MG PO (14:01)
[2016-10-04] VITALS: BP 148/86
[2016-10-04 07:03] LABS: BASO % 0.2 % (0.0-1.0); EOS # 0.1 10*3/uL (0.0-0.4); EOS % 1.1 % (1.0-4.0); HEMATOCRIT 25.6 % (42.0-52.0); HEMOGLOBIN 8.1 g/dl (14.0-18.0); LYMPH # 0.9 10*3/uL (1.3-4.4); LYMPH % 9.9 % (27.0-41.0); MEAN CORPUSCULAR HGB 26.9 pg (27.0-31.0); MEAN CORPUSCULAR HGB CONC 31.6 g/dl (33.0-37.0); MEAN PLATELET VOLUME 9.2 fl (9.6-12.3); MONO # 0.7 10*3/uL (0.1-1.0); MONO % 7.6 % (3.0-9.0); NEUT # 7.2 10*3/uL (2.3-7.9); NEUT % 80.9 % (47.0-73.0); PLATELET COUNT AUTOMATED 290 10*3/uL (130-400); RED BLOOD COUNT 3.01 10*6/uL (4.50-5.90); RED CELL DISTRI WIDTH 15.8 % (0-14.5); WHITE BLOOD COUNT 8.9 10*3/uL (4.8-10.8)
[2016-10-04 07:15] LABS: POTASSIUM 3.9 mmol/L (3.5-5.1)
[2016-10-04 08:00] VITALS: BP 136/82
[2016-10-04 12:00] VITALS: BP 138/72
[2016-10-04 16:00] VITALS: BP 147/75
[2016-10-04 20:00] VITALS: BP 135/61
[2016-10-05] VITALS: BP 138/58
[2016-10-05 06:08] LABS: RETICULOCYTE % 1.12 % (0.50-2.50)
[2016-10-05 06:11] LABS: IRF 8.3 % (2.4-13.3); RET-He 33.2 pg (32.1-37.9)
[2016-10-05 08:00] VITALS: BP 143/68
[2016-10-05 12:00] VITALS: BP 113/66
[2016-10-06 06:12] LABS: TOTAL PROTEIN, SERUM 5.6 g/dL (6.0-8.5)
[2016-10-06 08:13] LABS: HAPTOGLOBIN 001628 382 mg/dL (34-200)
[2016-10-06 15:10] LABS: ALBUMIN, URINE RANDOM 53.2 % (.); ALPHA-1-GLOBULIN, URINE 10.2 % (.); GAMMA GLOBULIN, URINE 16.3 % (.); M-SPIKE % Not Observed % (Not Observed); PROTEIN,TOTAL - URINE RANDOM 231.4 mg/dL (Not Estab.)
[2016-10-06 15:10] LABS: A/G RATIO 0.6 (0.7-1.7); ALPHA-1-GLOBULIN 0.4 g/dL (0.0-0.4); BETA GLOBULIN 0.8 g/dL (0.7-1.3); GAMMA GLOBULIN 1.3 g/dL (0.4-1.8); GLOBULIN, TOTAL 3.6 g/dL (2.2-3.9); M-SPIKE Not Observed g/dL (Not Observed)
== END 2016-10-05 16:54 | disposition other institution (70) | DRG 811 ==
LOC: ED 17:39 → 5E 19:19 → EDHOLD 19:19 → 5E 19:48
PROVIDERS: Internal Medicine; Internal Medicine Critical Care Medicine; Internal Medicine Hematology & Oncology; Registered Nurse
PROC: 0DB68ZX Excision of Stomach, Via Natural or Artificial Opening Endoscopic, Diagnostic (ICD-10-PCS; principal; 2016-09-30)
PROC: 0DBP8ZZ Excision of Rectum, Via Natural or Artificial Opening Endoscopic (ICD-10-PCS; 2016-10-03)
DX: D46.9 Myelodysplastic syndrome, unspecified (principal); E43 Unspecified severe protein-calorie malnutrition; N17.0 Acute kidney failure with tubular necrosis; G93.41 Metabolic encephalopathy; I48.0 Paroxysmal atrial fibrillation; E11.22 Type 2 diabetes mellitus with diabetic chronic kidney disease; E11.40 Type 2 diabetes mellitus with diabetic neuropathy, unspecified; I48.2 Chronic atrial fibrillation; K92.2 Gastrointestinal hemorrhage, unspecified; I12.9 Hypertensive chronic kidney disease with stage 1 through stage 4 chronic kidney disease, or unspecified chronic kidney disease; D50.9 Iron deficiency anemia, unspecified; F17.210 Nicotine dependence, cigarettes, uncomplicated; K29.70 Gastritis, unspecified, without bleeding; R62.7 Adult failure to thrive; E78.2 Mixed hyperlipidemia; M16.11 Unilateral primary osteoarthritis, right hip; Z96.1 Presence of intraocular lens; K57.30 Diverticulosis of large intestine without perforation or abscess without bleeding; N18.3 Chronic kidney disease, stage 3 (moderate); D63.8 Anemia in other chronic diseases classified elsewhere; J44.9 Chronic obstructive pulmonary disease, unspecified; E78.1 Pure hyperglyceridemia; Z98.1 Arthrodesis status; Z98.42 Cataract extraction status, left eye; Z98.41 Cataract extraction status, right eye; Z80.0 Family history of malignant neoplasm of digestive organs; Z79.82 Long term (current) use of aspirin; Z79.899 Other long term (current) drug therapy; Z82.49 Family history of ischemic heart disease and other diseases of the circulatory system; Z68.27 Body mass index [BMI] 27.0-27.9, adult

== ENCOUNTER → 2016-10-27 | Outpatient (CLI) | payer OTHER, MEDICARE ==
[~2016-10-27] MED LIST changes: +FEROSUL325 MG PO; +GLYCOLAX119 GM PO; +MIRTAZAPINE15 M2 PO; +OMEPRAZOLE20 M2 PO; +XARELTO10 MG PO
[2016-10-27 20:47] VITALS: BP 100/57
[2016-10-27 21:08] VITALS: BP 140/60
[2016-10-27 21:15] VITALS: BP 132/69
[2016-10-27 21:30] VITALS: BP 122/83
[2016-10-27 22:00] VITALS: BP 125/64
[2016-10-27 23:00] VITALS: BP 125/64
[2016-10-28] VITALS: BP 154/62
[2016-10-28 00:30] VITALS: BP 131/93
[2016-10-28 00:45] VITALS: BP 131/93; BP 153/70
[2016-10-28 01:00] VITALS: BP 157/81
[2016-10-28 01:15] VITALS: BP 142/71
[2016-10-28 02:15] VITALS: BP 148/95
== END | disposition home or self-care (01) ==
LOC: TRNFUSION 15:17
DX: D64.9 Anemia, unspecified (principal)

== ENCOUNTER → 2016-11-18 | Outpatient (CLI) | payer MEDICARE | END | disposition home or self-care (01) | LOC: EDSTATUS 11:00 → SDC 11:00 | DX: M16.11 Unilateral primary osteoarthritis, right hip (principal) ==